=== PATIENT | female | born 1950 | race Two or more races ===

== ENCOUNTER 2020-06-21 13:48 | Emergency (ER) | payer MEDICARE, SELFPAY ==
[2020-06-21 16:10] VITALS: BP 155/75; PULSE 85; RESP 18; TEMP 36.7; O2SAT 98; BMI 23.8
[2020-06-21 19:20] LABS: MANUAL DIFF FLAG NO
[2020-06-21 19:21] LABS: Basophils Absolute Auto 0.1 X10*3/uL (0.0-0.2); Basophils Percent Auto 0.6 % (0-2); Eosinophils Absolute Auto 0.1 X10*3/uL (0.0-0.4); Eosinophils Percent Auto 1.4 % (0-4); Hemoglobin 14.1 g/dl (12.0-16.0); Imm Gran Abs Auto 0.01 X10*3/uL (0.00-0.03); Imm Gran Pct Auto 0.1 % (0.0-0.4); Lymphocytes Absolute Auto 3.7 X10*3/uL (1.2-4.9); Lymphocytes Percent Auto 40.7 % (20-40); Mean Corpuscular HGB Conc 32.8 g/dl (31.0-35.0); Mean Corpuscular Hemoglobin 28.7 pg (27.0-33.0); Mean Corpuscular Volume 87.4 fL (80-98); Monocytes Absolute Auto 0.7 X10*3/uL (0.1-1.2); Monocytes Percent Auto 7.8 % (2-11); Neutrophils Absolute Auto 4.5 X10*3/uL (2.0-8.3); Neutrophils Percent Auto 49.4 % (45-73); Platelet Count 269 X10*3/uL (160-400); Red Blood Count 4.92 X10*6/uL (4.20-5.50); Red Cell Distribution Width 13.3 % (11.0-16.0); White Blood Count 9.1 X10*3/uL (4.8-10.8)
[2020-06-21 19:27] LABS: Prothrombin Time 12.1 SEC (10.8-13.0)
[2020-06-21 19:43] LABS: Anion Gap 13 (12-20); Blood Urea Nitrogen 15 mg/dL (9-16); Calcium 10.2 mg/dL (8.4-10.2); Carbon Dioxide 32 mmol/L (22-29); Chloride 99 mmol/L (96-108); Creatinine Clr Calc Pharmacy 60.9; Estimated Glomerular Filt Rate > 60; Glucose Random 123 mg/dL (60-115); Potassium 4.2 mmol/L (3.3-5.1); Sodium 140 mmol/L (135-145)
[2020-06-21 19:50] LABS: Troponin-I High Sensitivity < 3.5 ng/L (<3.5-17.0)
[2020-06-21 21:38] VITALS: BP 187/82; PULSE 77; RESP 18; TEMP 36.6; O2SAT 97
[2020-06-21 22:00] LABS: Glucose, Whole Blood 136 mg/dL (60-115)
--- NOTE | 2020-06-22 00:05 | ED.GENADULT ---
HPI - General Adult General Chief complaint: Neuro Symptoms/Deficit Stated complaint: dizziness and palipations Time Seen by Provider: 06/21/20 23:47 Source: patient Mode of arrival: ambulatory Limitations: no limitations History of Present Illness HPI narrative: Patient has history of hypertension takes lisinopril 10 mg and hydrochlorothiazide 12.5 daily and a blood pressure been stable usually less than 130/70 last 3 days patient noticed a blood pressure elevated fluctuating systolic blood pressure between 160-180 and diastolic between 70-90. Patient been little anxious lately felt little dizzy no chest pain no shortness of breath patient denied using of any NSAID. On arrival patient's blood pressure was 155/75 increased to 187/88 pulse rate of 77 Related Data Allergies Allergy/AdvReac Type Severity Reaction Status Date / Time lovastatin AdvReac Rash Verified 06/21/20 16:10 Penicillin Allergy Unknown rash Uncoded 07/21/11 00:00 Review of Systems Review of Systems: Constitutional : No Weight loss, No Fever, No Chills ENT/Mouth : No sore throat, No Rhinorrhea Eyes: No Eye Pain, No Swelling Cardiovascular : No Chest Pain, no palpitations Respiratory : No Cough, No Sputum, no shortness of breath Gastrointestinal : no Nausea, No Vomiting, No Diarrhea, No abdominal Pain, no black stools Genitourinary : No Dysuria, No Urinary Frequency Musculoskeletal : No joint pain, No Myalgias, No Joint Swelling Skin : No Skin Lesions, No rash Neuro : No Weakness, No Numbness, + Dizziness, No Headache Psych : + anxiety, No Depression Heme/Lymph: No Bruising, No Lymphadenopathy Endocrine : No Polyuria, No Polydipsia All other systems reviewed and are negative [facility] Past Medical History Medical History Asthma Diabetes High cholesterol HTN (hypertension) Social History Social History Advance Directives: No Advance Directives Information Provided: No Physical Exam Vital Signs: Vital Signs: Last Vital Signs Temp 97.9 F 06/21/20 21:38 Pulse 77 06/21/20 21:38 Resp 18 06/21/20 21:38 BP 187/82 H 06/21/20 21:38 Pulse Ox 97 06/21/20 21:38 Body Mass Index 23.8 Appearance: Alert. Oriented X3. No acute distress. Anxious++ Eyes: Pupils equal, round and reactive to light. ENT: Pharynx normal. Neck: Normal inspection. Neck supple. CVS: Normal heart rate and rhythm. Pulses normal. Respiratory: No respiratory distress. Breath sounds normal. Abdomen: Soft and nontender. Bowel sounds are present, no mass palpable, no CVA tenderness Skin: Skin warm and dry. Normal skin color. Normal skin turgor. Extremities: No lower extremity edema. Neuro: Oriented X 3. No motor deficit. No sensory deficit. Medical Decision Making MDM Narrative Medical decision making narrative: Patient with fluctuation blood pressure repeat blood pressure was 154/67 patient asymptomatic now patient advised to follow with PCP Lab Data Lab results reviewed: Yes I reviewed the patient's lab results. Result diagrams: 06/21/20 19:06/21/20 19: Labs: Lab Results 06/21/20 06/21/20 06/21/20 Range/Units 19: 19:01 19:01 WBC 9.1 (4.8-10.8) X10*3/uL RBC 4.92 (4.20-5.50) X10*6/uL Hgb 14.1 (12.0-16.0) g/dl Hct 43.0 (37-47) % MCV 87.4 (80-98) fL MCH 28.7 (27.0-33.0) pg MCHC 32.8 (31.0-35.0) g/dl RDW 13.3 (11.0-16.0) % Plt Count 269 (160-400) X10*3/uL MPV 11.0 (9.4-12.3) fL Immature Gran % (Auto) 0.1 (0.0-0.4) % Neut % (Auto) 49.4 (45-73) % Lymph % (Auto) 40.7 H (20-40) % Traverse % (Auto) 7.8 (2-11) % Eos % (Auto) 1.4 (0-4) % Baso % (Auto) 0.6 (0-2) % Lymph # (Auto) 3.7 (1.2-4.9) X10*3/uL Traverse # (Auto) 0.7 (0.1-1.2) X10*3/uL Eos # (Auto) 0.1 (0.0-0.4) X10*3/uL Baso # (Auto) 0.1 (0.0-0.2) X10*3/uL Abs Immat Gran (auto) 0.01 (0.00-0.03) X10*3/uL Absolute Neuts (auto) 4.5 (2.0-8.3) X10*3/uL Absolute Nucleated RBC 0.000 (0.0-0.012) X10*3/uL Nucleated RBC % (auto) 0.0 (0.0-0.2) /100WBC PT 12.1 (10.8-13.0) SEC INR 1.0 (0.9-1.1) Sodium 140 (135-145) mmol/L Potassium 4.2 (3.3-5.1) mmol/L Chloride 99 (96-108) mmol/L Carbon Dioxide 32 H (22-29) mmol/L Anion Gap 13 (12-20) BUN 15 (9-16) mg/dL Creatinine 0.68 (0.5-1.4) mg/dL Estim Creat Clear Calc 60.9 Estimated GFR > 60 POC Glucose (60-115) mg/dL Random Glucose 123 H (60-115) mg/dL Calcium 10.2 (8.4-10.2) mg/dL Troponin I High Sens (<3.5-17.0) ng/L 06/21/20 06/21/20 Range/Units 19:01 21:54 WBC (4.8-10.8) X10*3/uL RBC (4.20-5.50) X10*6/uL Hgb (12.0-16.0) g/dl Hct (37-47) % MCV (80-98) fL MCH (27.0-33.0) pg MCHC (31.0-35.0) g/dl RDW (11.0-16.0) % Plt Count (160-400) X10*3/uL MPV (9.4-12.3) fL Immature Gran % (Auto) (0.0-0.4) % Neut % (Auto) (45-73) % Lymph % (Auto) (20-40) % Traverse % (Auto) (2-11) % Eos % (Auto) (0-4) % Baso % (Auto) (0-2) % Lymph # (Auto) (1.2-4.9) X10*3/uL Traverse # (Auto) (0.1-1.2) X10*3/uL Eos # (Auto) (0.0-0.4) X10*3/uL Baso # (Auto) (0.0-0.2) X10*3/uL Abs Immat Gran (auto) (0.00-0.03) X10*3/uL Absolute Neuts (auto) (2.0-8.3) X10*3/uL Absolute Nucleated RBC (0.0-0.012) X10*3/uL Nucleated RBC % (auto) (0.0-0.2) /100WBC PT (10.8-13.0) SEC INR (0.9-1.1) Sodium (135-145) mmol/L Potassium (3.3-5.1) mmol/L Chloride (96-108) mmol/L Carbon Dioxide (22-29) mmol/L Anion Gap (12-20) BUN (9-16) mg/dL Creatinine (0.5-1.4) mg/dL Estim Creat Clear Calc Estimated GFR POC Glucose 136 H (60-115) mg/dL Random Glucose (60-115) mg/dL Calcium (8.4-10.2) mg/dL Troponin I High Sens < 3.5 (<3.5-17.0) ng/L Discharge Plan Discharge Clinical Impression: Hypertension Qualifiers: Hypertension type: essential hypertension Qualified Code(s): I10 - Essential (primary) hypertension Patient Disposition: Home, Self-Care Instructions: Chronic Hypertension (ED) Additional Instructions: Take her blood pressure medication daily as prescribed. Check blood pressure before taking the medicine and before going to bed should be less than 160/100 His blood pressure continued to be elevated you may take extra tablet of your blood pressure medicine and call your PCP Stand Alone Forms: Work/School Release
[2020-06-22 00:53] VITALS: BP 135/71; PULSE 76; RESP 18; O2SAT 98
== END 2020-06-22 00:56 | disposition home or self-care (01) ==
PROVIDERS: Emergency Provider Internal Medicine; PCP Family Medicine Adult Medicine
DX: I10 Essential (primary) hypertension (principal); E11.9 Type 2 diabetes mellitus without complications; Z79.899 Other long term (current) drug therapy
CPT/HCPCS: 36415; 80048; 82947; 84484; 85025; 85610; 99283; 99284

== ENCOUNTER 2021-05-19 11:14 | Outpatient (REF) | payer MEDICARE, SELFPAY ==
--- NOTE | ~2021-05-19 | XR_ITS ---
EXAMINATION: XR CHEST CLINICAL INFORMATION: Acute upper respiratory infection. COMPARISON: None TECHNIQUE: 2 views of the chest were obtained. FINDINGS: No significant abnormality is noted involving the heart, lungs, mediastinum, bony thorax or soft tissues. XR/XR chest 2V IMPRESSION: Unremarkable chest exam
[2021-05-19 13:52] LABS: Binax Internal Control QC Valid; Binax Now Covid-19 Ag Positive (Negative)
== END 2021-05-19 11:15 | disposition home or self-care (01) ==
LOC: HO.HMGCX 11:14
PROVIDERS: PCP Internal Medicine; Visit Provider Physician Assistant
DX: Z20.822 Contact with and (suspected) exposure to COVID-19 (principal); J06.9 Acute upper respiratory infection, unspecified
CPT/HCPCS: 36415; 71046

== ENCOUNTER 2023-03-30 11:27 | Outpatient (AMB) | payer MEDICARE, SELFPAY ==
[2023-03-30 13:02] VITALS: BP 130/70; PULSE 87; TEMP 36.7; O2SAT 98
--- NOTE | 2023-03-30 13:02 | MHC.PC.OV ---
Vital Signs 03/30/23 13:02 Height 5 ft 2 in Intake Visit Reasons: EP RT Neck pain radiating up from RT Ribs Intake Note: pt is here for c/o rt neck pain radiating from ribs Allergies lovastatin Adverse Reaction (Verified 03/30/23 13:03) Rash Penicillin Allergy (Unknown, Uncoded 07/01/22 09:05) rash HPI HPI Comments History of Present Illness Details This is a who presents to the office today for sick visit. Patient complaining of . PFSH Medical History Asthma Diabetes High cholesterol HTN (hypertension) Social History Patient Tobacco Use Status: Never used Tobacco Review of Systems Const All systems reviewed & are unremarkable except as noted in HPI and below Reports no additional complaints Eyes Reports no additional complaints ENT Reports no additional complaints Card Reports no additional complaints Resp Reports no additional complaints GI Reports no additional complaints Reports no additional complaints Musc Reports no additional complaints Skin/Breast Reports system reviewed and no additional complaints, except as documented Neuro Reports no additional complaints Psych Reports no additional complaints Endo Reports no additional complaints Og/Lymph Reports no additional complaints Aller/Immun Reports no additional complaints Physical exam (Primary Care) Tobacco/Smoking Status: Tobacco use Status Patient Tobacco Use Status Never used Tobacco 03/30/23 13:04 Coding
--- NOTE | 2023-03-30 13:23 | MHC.OFFWIV ---
Intake Vital Signs 03/30/23 13:02 Height 5 ft 2 in BP 130/70 Blood Pressure Location Lt brachial Position Sitting Pulse 87 Pulse Source Pulse Oximeter Temp 98.0 F Temp Source Temporal Artery Scan Pulse Oximetry (%) 98 Intake Visit Reasons: EP RT Neck pain radiating up from RT Ribs Intake Note: pt is here for c/o rt neck pain radiating to ribs Patient Tobacco Use Status: Never used Tobacco Allergies lovastatin Adverse Reaction (Verified 03/30/23 13:03) Rash Penicillin Allergy (Unknown, Uncoded 07/01/22 09:05) rash HPI HPI Comments History of Present Illness Details This is a 73-year-old female who presents to the office today for sick visit. Patient complaining of right sided rib/chest wall pain x3 days and right-sided neck pain x1 day. Patient states she leaned over the side of her recliner on the right side of her chest wall to pick something off the ground. She felt a mild pull in the right side of her chest. She states that she has been pain with coughing, sneezing, and laughing. She then woke up with mild right-sided neck pain yesterday morning. She denies any shortness of breath or substernal chest pain. She denies any abdominal pain or nausea/vomiting/diarrhea. She denies any lightheadedness or dizziness. [facility] Medical History Asthma Diabetes High cholesterol HTN (hypertension) Social History Patient Tobacco Use Status: Never used Tobacco Review of Systems Const All systems reviewed & are unremarkable except as noted in HPI and below Reports no additional complaints Eyes Reports no additional complaints ENT Reports no additional complaints Card Reports no additional complaints Resp Reports no additional complaints GI Reports no additional complaints Reports no additional complaints Musc Reports no additional complaints Skin/Breast Reports system reviewed and no additional complaints, except as documented Neuro Reports no additional complaints Psych Reports no additional complaints Endo Reports no additional complaints Og/Lymph Reports no additional complaints Aller/Immun Reports no additional complaints Physical Exam Vital Signs: Last Vital Signs Temp 98.0 F 03/30/23 13:02 Pulse 87 03/30/23 13:02 BP 130/70 03/30/23 13:02 Pulse Ox 98 03/30/23 13:02 Const Other: Vital signs reviewed. Constitutional: Non-toxic appearing. No acute distress. Well-developed and well-nourished. HEENT: Normocephalic and atraumatic. Tympanic membranes without erythema, edema, or bulging bilaterally. External auditory canals without erythema or edema bilaterally. Moist mucous membranes. No pharyngeal erythema or exudates. Skin: Warm and dry. No rashes or lesions noted. Neck: Full and painless range of motion. No cervical lymphadenopathy. Mild tenderness to palpation with muscle spasms of the right-sided cervical paraspinal musculature. Cardio: Regular rate and rhythm. No murmurs, gallops, or rubs. No lower extremity edema. No JVD. Mild tenderness to palpation of the right chest wall. Pulmonary: No respiratory distress. No accessory muscle usage. Clear to auscultation bilaterally without wheezing, crackles, or rhonchi. Gastrointestinal: Soft, nontender, and nondistended in all 4 quadrants. Normoactive bowel sounds in all 4 quadrants. Genitourinary: No CVA tenderness. Musculoskeletal: Normal range of motion in joints throughout the body. No deformity or other signs of injury. Neuro: Alert and oriented x4. Cranial nerves 2-12 grossly intact. No focal deficits appreciated. Psych: Normal mood and affect. Assessment & Plan Assessment & Plan (1) Cervicalgia: Code(s): M54.2 - Cervicalgia Plan: This is a 73-year-old female who presents to the office complaining of right-sided chest wall pain known right-sided neck pain x3 days. Patient has right-sided chest wall pain began after leaning over her recliner to pick something off the ground and she felt a ?pull?, her neck pain started 2 days later. Patient very likely has a intercostal sprain/strain; I believe that her right-sided neck pain is likely secondary to compensation as patient has been bracing with coughing, sneezing, laughing, etc.. Recommended supportive management including rest/activity modification, heat to the area, lidocaine patches to the area, PO acetaminophen/ibuprofen for pain, and PO methocarbamol 750 mg 3 times daily as needed for muscle spasms. Offer the patient a chest x-ray to rule out rib fracture, but patient declined at this time and I have very low suspicion for rib fracture given no significant trauma. Patient advised to follow-up here or with the emergency room for persistent or worsening symptoms. Patient verbalizes her understanding and she is in agreement with the plan. Medications: New methocarbamol 750 mg PO Q8H PRN 20 tabs 0RF muscle spasm Coding Level of Care Code Est Pt Level 3 (87976) Diagnoses Cervicalgia M54.2
== END 2023-03-30 13:46 | disposition home or self-care (01) ==
PROVIDERS: PCP Internal Medicine; Visit Provider Physician Assistant Medical
DX: M54.2 Cervicalgia (principal)
CPT/HCPCS: 99213

== ENCOUNTER 2024-01-16 10:51 | Outpatient (AMB) | payer OTHER, SELFPAY ==
[2024-01-16 11:18] VITALS: BP 102/60; PULSE 97; TEMP 36.8; O2SAT 99; BMI 23.6
--- NOTE | 2024-01-16 11:18 | MHC.OFFWIV ---
Intake Vital Signs 01/16/24 11:18 Height 5 ft 2 in Weight 129 lb BMI 23.6 BP 102/60 Blood Pressure Location Lt brachial Position Sitting Pulse 97 Pulse Source Pulse Oximeter Temp 98.3 F Temp Source Oral Pulse Oximetry (%) 99 Oxygen Delivery Method Room Air Intake Visit Reasons: EP Cough, mucus, Wheezing Intake Note: pt c/o cough, mucus and wheezing. Started Sunday with dry cough. Worsening. Patient Tobacco Use Status: Never used Tobacco Allergies lovastatin Adverse Reaction (Verified 01/16/24 11:19) Rash Penicillin Allergy (Unknown, Uncoded 01/16/24 11:19) rash Do you need a note to return to daycare/school/sports/work: No HPI EP Cough, mucus, Wheezing HPI Details This note is constructed using voice recognition software. While every effort has been made to ensure accuracy, school cafeteria head cook errors may have been included. The patient is a 73 year old female who presents to the clinic today with cough with wheeze onset Sunday. 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 She had seen her pipe and test supervisor as recent as 2 weeks ago and there was discussion about how it has been over 6 months since she has had an asthma exacerbation. She developed a cough with no additional symptoms. She reports that typically when she has her asthma exacerbation she has some sort of URI symptoms including congestion or sore throat or something URI related prior to developing a cough that seems to not go away. This time she has developed a cough that makes her lungs feel tight, she does not have any chest pain, she does not have any shortness of breath. She has been using her inhalers, but the symptoms do not seem to resolve. [facility] Medical History Asthma Diabetes High cholesterol HTN (hypertension) Social History Patient Tobacco Use Status: Never used Tobacco Review of Systems Const All systems reviewed & are unremarkable except as noted in HPI and below Physical Exam Vital Signs: Last Vital Signs Temp 98.3 F 01/16/24 11:18 Pulse 97 01/16/24 11:18 BP 102/60 01/16/24 11:18 Pulse Ox 99 09/04/24 11:18 Oxygen Delivery Method Room Air 01/16/24 11:18 BMI result Body Mass Index 23.6 Const General: cooperative, healthy appearing, comfortable, no acute distress and alert Orientation/consciousness: patient oriented x3 Limitations: no limitations HEENT Head: Yes normal to inspection and Yes normocephalic Ears: hearing grossly normal bilaterally General nose exam: Normal external nose present Face and sinus: Yes normal facial exam and Yes sinuses nontender Mouth: Normal oral and palatal mucosa present and tongue normal Teeth and gingiva: dentition normal Throat: Yes posterior oropharynx normal Eyes General: appearance normal, both eyes and all related structures Neck Neck: Yes normal visual inspection, Yes full ROM and Yes no lymphadenopathy Resp Effort & Inspection: normal respiratory effort and able to speak in complete sentences Auscultation: clear to auscultation bilaterally (But tight sounding) Cardio Jugular venous distension: no JVD Palpation: normal PMI Rate: regular rate Heart sounds: S1 normal heart sound present, S2 normal heart sound present, no click, no gallops, no murmurs and no rubs Skin General skin exam: no rashes or lesions noted, elasticity normal and turgor normal Neuro General: patient oriented x3 Psych Appearance: grossly normal Mental Status: mental status grossly normal Speech and movement: Normal speech and movement present Affect: normal affect Assessment & Plan Assessment & Plan (1) URI (upper respiratory infection): Code(s): J06.9 - Acute upper respiratory infection, unspecified Qualifiers: URI type: unspecified URI Qualified Code(s): J06.9 - Acute upper respiratory infection, unspecified Plan: Viral swab obtained to rule out Covid based on symptoms. Advised mask wearing while symptomatic and quarantine per current CDC guidelines. Reviewed at home support methods including hydration, humidification, vix vapor rub, sinus rinse. Discussed treatment with antiviral therapy for covid with paxlovid including appropriate use and side effects, and need to start medication within 5 day of symptom onset, preferably within 48 hours of symptom onset. Patient wishes to decline paxlovid. Advised follow up with worsening symptoms such as dyspnea at rest, which would require emergent evaluation. (2) Asthma exacerbation: Code(s): J45.901 - Unspecified asthma with (acute) exacerbation Qualifiers: Asthma severity: mild Asthma persistence: persistent Qualified Code(s): J45.31 - Mild persistent asthma with (acute) exacerbation Plan: Otherwise reassuring physical examination. We will treat with steroid burst for symptomatic management. Advised patient to continue with her daily controller inhalers and her as needed albuterol. Advised to follow up with pipe and test supervisor should her symptoms persist or worsen. Plan See above for full details and plan. Medications: New prednisone 40 mg (2 x 20 mg) PO DAILY 5 days 10 tabs 0RF Coding Level of Care Code Est Pt Level 3 (95283) Diagnoses Upper respiratory tract infection, unspecified type J06.9 URI type: unspecified URI Mild persistent asthma with exacerbation J45.31 Asthma severity: mild Asthma persistence: persistent
== END 2024-01-16 11:48 | disposition home or self-care (01) ==
PROVIDERS: PCP Internal Medicine; Visit Provider Registered Nurse
DX: J06.9 Acute upper respiratory infection, unspecified (principal); J45.31 Mild persistent asthma with (acute) exacerbation
CPT/HCPCS: 99213

== ENCOUNTER 2024-01-16 11:51 | Outpatient (REF) | payer OTHER, SELFPAY ==
[2024-01-16 14:09] LABS: Influenza A PCR NEGATIVE (Negative); Influenza B PCR NEGATIVE (Negative); Resp Syncy Virus RNA Qual PCR NEGATIVE (Negative); SARS COV2 PCR INHOUSE NEGATIVE (Negative)
== END 2024-01-16 11:52 | disposition home or self-care (01) ==
LOC: HO.LAB 11:51
PROVIDERS: Visit Provider Registered Nurse
DX: J06.9 Acute upper respiratory infection, unspecified (principal)
CPT/HCPCS: 0241U

== ENCOUNTER 2024-06-23 14:20 | Outpatient (AMB) | payer OTHER, SELFPAY ==
--- NOTE | 2024-06-23 14:42 | MHC.OFFWIV ---
Intake Vital Signs 06/23/24 14:44 Weight 127 lb BP 140/80 H Blood Pressure Location Rt brachial Position Sitting Pulse 120 H Pulse Source Pulse Oximeter Temp 98.2 F Temp Source Oral Pulse Oximetry (%) 97 Oxygen Delivery Method Room Air Intake Visit Reasons: EP persistent cough, wheezing Intake Note: Patient here for cough and wheezing that has been present for over 2 weeks. Patient Tobacco Use Status: Never used Tobacco Allergies lovastatin Adverse Reaction (Verified 06/23/24 14:45) Rash benzonatate Allergy (Intermediate, Uncoded 06/23/24 15:12) Unknown Penicillin Allergy (Unknown, Uncoded 06/23/24 14:45) rash Do you need a note to return to daycare/school/sports/work: No HPI HPI Comments History of Present Illness Details History - The patient is a 74-year-old female with pmhx of asthma presenting with an acute cough and difficulty breathing. - Symptoms initiated three days prior, with an intensification of asthma-related issues. - Asthma history includes recent prednisone treatment in early May; symptoms worsened unexpectedly. - Breathing difficulties exacerbate with steam exposure, leading to panic and breathlessness. - Current regimen includes inhaler every 4-5hrs and nebulizer use every 5 hours, though efficacy is presently diminished. - Throat soreness and chest burning accompany the acute cough, with ongoing inhaler and fluid therapy. - Sensitivity to Benzonatate and avoidance of penicillin-based antibiotics are noted. Physical Exam General: Cooperative, healthy appearing, comfortable and no acute distress Orientation/consciousness: Patient oriented x3 Limitations: No limitations Head: Normal to inspection Ears: Hearing grossly normal bilaterally, external ears normal and TM's normal bilaterally Nose: Normal external nose present, Normal nares present and No nasal discharge present Face and sinus: Normal facial exam and Yes sinuses nontender Mouth: Normal oral and palatal mucosa present and moist mucous membranes Throat: Yes tonsils normal, Yes uvula midline. Throat sore and inflamed Eyes: Appearance normal, both eyes and all related structures Neck: Normal visual inspection Respiratory: Clear to auscultation bilaterally. Normal respiratory effort, able to speak in complete sentences, Actively dry coughing, no respiratory distress, not tachypneic, no tripod positioning and no use of accessory muscles. Wheezing present Cardiovascular: tachycardid rate and regular rhythm. Normal S1 and S2 Skin: No rashes or lesions noted Neuro: Patient oriented x3 Extremities: Normal to inspection and Yes no clubbing, cyanosis or edema PFSH Medical History Asthma Diabetes High cholesterol HTN (hypertension) Social History Patient Tobacco Use Status: Never used Tobacco Review of Systems Const All systems reviewed & are unremarkable except as noted in HPI and below Physical Exam Vital Signs: Last Vital Signs Temp 98.2 F 06/23/24 14:44 Pulse 120 H 06/23/24 14:44 BP 140/80 H 06/23/24 14:44 Pulse Ox 97 06/23/24 14:44 Oxygen Delivery Method Room Air 06/23/24 14:44 Assessment & Plan Assessment & Plan (1) URI (upper respiratory infection): Code(s): J06.9 - Acute upper respiratory infection, unspecified Qualifiers: URI type: unspecified URI Qualified Code(s): J06.9 - Acute upper respiratory infection, unspecified Plan: Pt tachycardic, likely 2/2 dehydration, encouraged increased fluids and rest. For management of the asthma exacerbation and acute cough, I have prescribed azithromycin for its potential anti-inflammatory effects alongside a prednisone burst of 50 mg for five days to address airway inflammation. The patient should use her inhaler and nebulizer every four hours as required, while being advised on avoiding the concurrent intake of hydroxyzine with azithromycin due to interaction risks. Diagnostic testing for influenza, COVID-19, and RSV will be conducted to evaluate possible viral etiologies contributing to the respiratory distress. Medication side effects were discussed, and we will follow up on test results and therapeutic response. Patient was informed and verbally consented to the use of an ambient scribe for clinic note documentation during this visit Orders: Orders SARS-CoV2/FLU/RSV Today J06.9 - Acute upper respiratory infection, unspecified Medications: New prednisone 50 mg PO QAM 5 tabs 0RF azithromycin For 250 mg dose pack: take 500 mg today (day 1), then 250 mg for 4 days (days 2-5) PO 6 tabs 0RF Coding Level of Care Code New Pt Level 3 (39905) Diagnoses Upper respiratory tract infection, unspecified type J06.9 URI type: unspecified URI
[2024-06-23 14:44] VITALS: BP 140/80; PULSE 120; TEMP 36.8; O2SAT 97
== END 2024-06-23 15:09 | disposition home or self-care (01) ==
PROVIDERS: PCP Internal Medicine; Visit Provider Physician Assistant
DX: J06.9 Acute upper respiratory infection, unspecified (principal)

== ENCOUNTER 2024-06-23 14:20 | Outpatient (REF) | payer OTHER, SELFPAY ==
--- OUTSIDE RECORDS SUMMARY | 2024-06-23 16:14 | XMS_ITS | Encounter Summary ---
Author Organization [facility] Address [address] [place] [address] Care Team Providers Care Gun Tester Name Role Phone Guerita Perez MD Primary Care Prov ider Reason for Visit * Reason Onset Date Comments Wheezing 06/06/2024 Encounter Details Date Type Department Care Team ([facility] st Contact Info) Description 06/06/2024 Telephone Pulmonol - [place] [address] [place] [phone] Nettie Garcia NP [address] [place] [address] Wheezing Social History Tobacco Use Types Packs/Day Years Used Date Smoking Tobacco: Never Passive Smoke Exposure: Never Smokeless Tobacco: Never Alcohol Use Standard Drinks/Week Comments Never 0 (1 standard drink = 0.6 oz pur e alcohol) Interpersonal Safety Answer Date Record ed Physical Abuse 03/26/2024 Verbal Abuse 03/26/2024 Comments No Sex and Gender Information Value Date Recorded Sex Assigned at Female 03/26/2024 11:22 AM EST Legal Sex Female 6:52 PM EST Gender Identity Female 03/26/2024 11:22 AM EST Sexual Orientation Straight 03/26/2024 11 :22 AM EST documented as of this encounter Progress Notes * Manasa Martin MA - 06/06/2024 11:42 AM EST Appointment schedule for Sunday June 09, 2024 at 8:30 am. patient was advised if the symptoms get worsen during the weekend to go to any urgent care * Salima Arora - 06/06/2024 9:37 AM EST Patient called requesting an apt [place] due to patient has been wheezing for the past 2 days and it seem to get worst at night. Patient is seeking foa apt , please advice documented in this encounter Plan of Treatment Upcoming Encounters Date Type Department Care Team (Late st Contact Info) Description 06/24/2024 9:30 AM EST Office Visit [facility] [address] [phone] Nettie Garcia NP [address] [phone] 07/04/2024 10:10 AM EST [facility] [address] [phone] Nettie Garcia NP [address] [address] 07/16/2024 8:30 AM EST Office Visit [facility] - [address] [phone] Guerita Perez MD [address] [place] [id number] 03/20/2025 1:30 PM EST Appointment Radiology Department - [address] [phone] documented as of this encounter Visit Diagnoses Not on filedocumented in this encounter Additional Health Concerns Assessment Noted Time PHQ-9 Depression Total Score: 0 03/18/20 8:43 AM EST documented as of this encounter Care Teams Gun Tester Relationship Specialty Start Date End Date Guerita Perez MD [address] [place] [id number] PCP - General Internal Medicine 03/19/24 documented as of this encounter
--- OUTSIDE RECORDS SUMMARY | 2024-06-23 16:14 | XMS_ITS | Encounter Summary ---
Author Organization [facility] Address [address] [place] [address] Care Team Providers Care Commodity Buyer Name Role Phone Guerita Perez MD Primary Care Prov ider Reason for Visit * Reason Comments Post-op Encounter Details Date Type Department Care Team (Late st Contact Info) Description 06/03/2024 2:20 PM EST Office Visit Obstetrics and Gynecology [address] [phone] Flavia Ruffin PA [address] [place] [address] Postop check (Primary Dx); Status post hysterectomy Social History Tobacco Use Types Packs/Day Years Used Date Smoking Tobacco: Never Passive Smoke Exposure: Never Smokeless Tobacco: Never Tobacco Cessation:Counseling Given: Not Answered Alcohol Use Standard Drinks/Week Comments Never 0 [...] AM EST documented as of this encounter Last Filed Vital Signs Vital Sign Reading Time Taken Comments Blood Pressure 148/82 06/03/2024 2:32 PM EST Pulse 92 06/03/2024 2:32 PM EST Temperature - - Respiratory Rate 14 06/03/2024 2:32 PM EST Oxygen Saturation - - Inhaled Oxygen Concentration - - Weight 59.2 kg (130 lb 9.6 oz) 06/03/2024 2:32 PM EST Height - - Body Mass Index 23.89 03/26/2024 11:38 AM EST documented in this encounter Progress Notes * KALIN Schroeder - 06/03/2024 2:20 PM EST PATIENT: Bing Sexton ENCOUNTER: 06/03/2024 EMRN: [id number] : 1950 Chief Complaint: No chief complaint on file. History of Present Illness: Bing Sexton is a 74 y.o. old female presenting for 2nd post operative appointment following RTLH with BSO on 03/26/[address] Stoner Following surgery she has been feeling great and has no complaints. Voiding - without issue Bowel Movements - regular Pain - controlled Bleeding / Discharge - denies Review of Systems: As per HPI Medications: Reviewed Allergies: Oxycodone, Lovastatin, Penicillin g, and Pravastatin Past Medical History: Reviewed Past Surgical History: Past Surgical History: Procedure Laterality Date COLONOSCOPY KNEE ARTHROPLASTY ROBOTIC ASSISTED HYSTERECTOMY 03/2024 with BSO; path benign TOTAL KNEE ARTHROPLASTY Bilateral Physical Exam: Visit Vitals LMP (LMP Unknown) OB Status Postmenopausal Smoking Status Never GENERAL: Well-appearing, well-nourished patient in no acute distress SKIN: Warm, normal for ethnicity and dry. HEENT: Normocephalic. No scleral icterus. Visual pacheco grossly intact. Hearing intact CARDIO: RRR, No M/R/G appreciated PULM: Non labored breathing. No audible wheezing. ABDOMINAL: Soft, non-distended, non-tender. No mass, guarding, or rebound. Incision sites are well healed without erythema or discharge. MSK: ROM grossly intact. Normal Tone. No calf tenderness NEURO: Alert & oriented x3. PSYCH: Normal affect, fluid speech, good eye contact, appropriate demeanor. Pelvic: Exam chaperoned by medical administrative specialist. Speculum was used for exam External Genitalia: Normal architecture, without lesions. Vagina: Mucosa is pink with normal rugae. No abnormal discharge Cervix/Uterus: Absent. Cuff intact. Probed with q-tip. Adnexa: No adnexal masses or tenderness bilaterally Perianal area: without lesions Assessment / Plan: Bing Sexton present for 2nd post op appointment. Incisions are well healed and pain is controlled. Cuff appears intact on exam. Vaginal restrictions lifted. Patient is cleared for return to work. No further lifting / pushing / pulling restrictions. This visit harrell the end of this patient's surgical visits. Return to office for annual exam or if needed for acute issues. documented in this encounter Plan of Treatment Upcoming Encounters Date Type Department Care Team (Late st Contact Info) Description 06/24/2024 9:30 AM EST Office Visit [facility] [address] [phone] Nettie Garcia NP [address] [address] 07/04/2024 10:10 AM EST Office Visit [facility] [address] [phone] Nettie Garcia NP [address] [address] 07/16/2024 8:30 AM EST Office Visit [facility] - [address] [phone] Guerita Perez MD [address] [place] [phone] 03/20/2025 1:30 PM EST Appointment Radiology Department - [address] [phone] documented as of this encounter Visit Diagnoses Diagnosis Postop check- Primary Follow-up examination, following unspecified surgery Status post hysterectomy Acquired absence of both cervix and uterus Encounter for screening mammogram for breast cancer documented in this encounter Additional Health Concerns Assessment Noted Time PHQ-9 Depression Total Score: 0 03/18/20 24 8:43 AM EST documented as of this encounter Care Teams Commodity Buyer Relationship Specialty Start Date End Date Guerita Perez MD [address] [place] [phone] PCP - General Internal Medicine 03/19/24 documented as of this encounter
--- OUTSIDE RECORDS SUMMARY | 2024-06-23 16:14 | XMS_ITS | Clinical Summary ---
Author Organization [facility] Address [address] [place] [address] Phone Care Team Providers Care Assistant Fitness Manager Name Role Phone Guerita Perez MD Primary Care Prov ider Allergies Active Allergy Reactions Criticality Noted Date Comments Benzonatate Hives,Rash 06/09/2024 Lovastatin Rash 04/18/2023 Oxycodone High 04/27/2023 Other Reaction(s): LIPS SWELLED Penicillin G Hives 11/12/2012 Other Reaction(s): Hives/Urticaria Pravastatin Headache 04/27/2023 Medications albuterol HFA (PROAIR HFA ; PROVENTIL HFA ; VENTOLIN HFA) 90 mcg/actuation inhaler Inhale 2 puffs by mouth 4 (four) times a day. 024 Active blood glucose control high,low solution Use to calibrate each new bottle of test strips 021 Active blood-glucose meter misc Use to test blood sugar once daily. 022 Active cetirizine (ZyrTEC) 10 mg tablet 1 tablet (10 mg total). 023 Active cholecalciferol (VITAMIN D-3) 25 mcg (1,000 unit) capsule Take 1 capsule (1,000 Units total) by mouth 1 (one) time each day. Active FREESTYLE LANCETS MISC Test fasting blood sugar 1 time daily 023 Active alendronate (FOSAMAX) 70 mg tablet Take 1 tablet (70 mg total) by mouth every 7 (seven) days. Active blood sugar diagnostic (FreeStyle Lite Strips) test strip USE DIRECTED TO TEST BLOOD SUGAR EVERY DAY Active betamethasone dipropionate (DIPROSONE) 0.05 % cream APPLY TO THE AFFECTED AREA(S) ON RIGHT THIGH TWICE DAILY FOR 2 WEEKS, STOP FOR 1 WEEK. REPEAT NEEDED FOR FLARE. Active empagliflozin (Jardiance) 10 mg tablet Take 1 tablet (10 mg total) by mouth 1 (one) time each day. Pt tp stop 1 week pror to sx 90 tablet Active metFORMIN XR (GLUCOPHAGE-XR) 500 mg 24 hr tablet Take 1 tablet (500 mg total) by mouth 2 (two) times a day. Do not crush, chew, or split. 180 tablet Active hydroCHLOROthia zide (MICROZIDE) 12.5 mg capsule Take 1 capsule (12.5 mg total) by mouth 1 (one) time each day in the morning. 45 capsule Active ezetimibe (ZETIA) 10 mg tablet Take 1 tablet (10 mg total) by mouth 1 (one) time each day. 90 tablet 025 Active lisinopriL (PRINIVIL,ZESTR IL) 10 mg tablet Take 1 tablet (10 mg total) by mouth 1 (one) time each day. 90 tablet 025 Active albuterol 2.5 mg /3 mL (0.083 %) nebulizer solutionIndicat ions:Moderate persistent asthma without complication Take 3 mL (2.5 mg total) by nebulization every 4 (four) hours if needed for shortness of breath or wheezing. 300 mL Active zafirlukast (Accolate) 20 mg tabletIndicatio ns:Moderate persistent asthma without complication Take 1 tablet (20 mg total) by mouth 2 (two) times a day. 60 each 025 2025 Active Advair HFA 230-21 mcg/actuation inhalerIndicati ons:Moderate persistent asthma without complication Inhale 2 puffs by mouth 2 (two) times a day. Rinse mouth with water after use to reduce aftertaste and incidence of candidiasis. Do not swallow. 1 each 5 025 2024 Active albuterol 2.5 mg /3 mL (0.083 %) nebulizer solution 3 mL (2.5 mg total) every 4 (four) hours if needed. 2024 Discontinued(R eorder) fluticasone HFA (Flovent HFA) 110 mcg/actuation inhaler Inhale 2 puffs by mouth 2 (two) times a day. 2024 Discontinued(F ormulary change) Advair HFA 230-21 mcg/actuation inhaler INHALE 2 PUFFS BY MOUTH TWICE DAILY RINSE MOUTH AFTER USING. AND SPIT OUT 2024 Discontinued(R eorder) ciclopirox (PENLAC) 8 % solution Apply topically at bedtime. Apply over nail and surrounding skin. Apply daily over previous coat. After seven (7) days, may remove with alcohol and continue cycle. 6.6 mL 2024 Discontinued traMADoL (ULTRAM) 50 mg tabletIndicatio ns:for acute post op pain Take 1 tablet (50 mg total) by mouth every 6 (six) hours if needed for severe pain. Max Daily Amount: 200 mg 8 tablet 2024 Discontinued simethicone (MYLICON) 80 mg chewable tablet Chew 1 tablet (80 mg total) every 6 (six) hours if needed (gas pain / bloating). 10 tablet 2024 Discontinued ondansetron (ZOFRAN) 4 mg tabletIndicatio ns:prevention of post-operative nausea and vomiting Take 1 tablet (4 mg total) by mouth every 8 (eight) hours if needed for nausea or vomiting. 10 tablet 2024 Discontinued predniSONE (DELTASONE) 20 mg tabletIndicatio ns:Moderate persistent asthma without complication Take 2 tablets (40 mg total) by mouth 1 (one) time each day for 5 days. 10 each 025 2024 Discontinued predniSONE (DELTASONE) 20 mg tabletIndicatio ns:Moderate persistent asthma without complication Take 2 tablets (40 mg total) by mouth 1 (one) time each day for 5 days. 10 each 025 2024 Active Problems Problem Noted Date Diagnosed Date Statin intolerance 07/04/2023 Osteoporosis 06/26/2023 Overview (07/04/2023): DXA BONE DENSITY STUDY 1+ SITS AXIAL SKEL Result Date: 06/25/2023 BONE DENSITY Lumbar Spine T-score is -2.9 (SD relative to 20-29 y/o adult) Z- score is -0.6 (SD relative to age matched peers) This is consistent with osteoporosis by criteria defined by the WHO. Left Hip T-score is -2.0 Z-score is -0.2 This is consistent with osteopenia by criteria defined by the WHO. Comparison exam(s): significant decrease in bone density of lumbar spine when compared to most recent bone density examination Confidence level is +/-95%. Impression: Based on the World Health Organization criteria, Bing Sexton should be classified as having osteoporosis. The [facility] Department of Internal Medicine recommends using National Osteoporosis Foundation (NOF) guidelines in treatment decisions related to osteoporosis. NOF guidelines suggest considering treatment for postmenopausal women and men aged 50 or older presenting with the following: History of hip or vertebral fracture. T-score less than or equal to -2.5 (DXA) at the femoral neck, total hip, or spine, after appropriate evaluation to exclude secondary causes. Low bone mass (T-score between -1.0 and -2.5 at the femoral neck or spine) AND a 10-year probability of a hip fracture greater than or equal to 3% OR a 10-year probability of a major osteoporosis-related fracture greater than or equal to 20% based on the [place]-adapted WHO algorithm Please note that all treatment decisions require clinical judgment and consideration of individual patient factors, including patient preferences, co-morbidities, previous drug use, risk factors not captured in the FRAX model (e.g., frailty, falls, vitamin D deficiency, increased bone turnover, interval significant decline in bone density) and possible under- or over- estimation of fracture risk by FRAX. Postmenopausal bleeding 02/07/2023 Pelvic pain 02/07/2023 Vaginal spotting 01/30/2023 Overview (07/04/2023): Last Assessment & Plan: Reassured likely secondary to recent EMB. Continue to monitor and call if does not resolve in the next 1-2 weeks. Irritant dermatitis 01/30/2023 Overview (07/04/2023): Last Assessment & Plan: Likely irritant dermatitis. Short course of topical Mycolog and yeast culture sent. Will follow [facility] guidelines. Uterine leiomyoma 07/11/2022 Overview (07/04/2023): Last Assessment & Plan: MRI results reviewed with patient. Discussed as patient is asymptomatic, no need for intervention. Fibroids may continue to degenerate over time. All questions answered. Endometrial polyp 12/28/2021 Overview (07/04/2023): Last Assessment & Plan: I again discussed the finding of endometrial polyp and recommendation for polypectomy due to small risk of underlying malignancy. Patient again declines. Left ovarian cyst 12/28/2021 Overview (07/04/2023): Last Assessment & Plan: Ultrasound results reviewed. Discussed with patient that left ovarian cyst appears simple and stable in size, however given her development of pain, surgical intervention is reasonable. We discussed the possible risk of underlying malignancy and I recommended completing a CA125 today. Treatment options including expectant management, laparoscopic salpingooophorectomy (unilater or bilateral) and TLH/BSO were discussed. Patient is most interested in hysterectomy with bilateral salpingo-oophorectomy given history of fibroid uterus and finding of endometrial polyp as well. We discussed that prior to hysterectomy I would like to perform endometrial sampling to ensure the endometrial polyp is benign. She expressed understanding and will return for endometrial biopsy. We discussed the plan for robotic approach with risk of conversion to open hysterectomy. Risks of surgery were discussed including the risk of underlying malignancy with need for future surgery and the risk of poor healing given history of diabetes with most recent A1c 7.5. Patient will complete CA125 today and return for endometrial biopsy. If results are benign, we will then schedule for robotic assisted total laparoscopic hysterectomy with bilateral salpingo-oophorectomy, possible open, peritoneal washings and diagnostic cystoscopy. All questions answered. Bulky or enlarged uterus 09/17/2021 Overview (07/04/2023): Last Assessment & Plan: I discussed the exam findings of an enlarged, bulky uterus with irregular contour with the patient today. She does report a history of fibroids, however no imaging is available for review. Ultrasound has been ordered for further evaluation. S/P TKR (total knee replacement), bilateral 02/12 Overview (07/04/2023): Left: 11/16/2021, right: 05/29/2019 Hyperlipidemia with target LDL less than 100 02/2014 Overview (07/04/2023): IMO update Assessment & Plan (03/20/2024 7:47 PM EST): Given the patients cardiac risk profile, the patient requires an LDL cholesterol of less than 70, target. Continue Zetia. I have instructed the patient on the principles of a low cholesterol diet and the importance of regular exercise. Will recheck lipid profile. Orders: Microalbumin creatinine urine ratio; Future Comprehensive metabolic panel; Future Hemoglobin A1c; Future Lipid panel with reflex to direct LDL; Future Diverticulitis of colon without hemorrhage 03/27 Overview (07/04/2023): CN 2006. HTN (hypertension), benign 11/12/2012 Assessment & Plan (03/20/2024 7:47 PM EST): The patient's antihypertensive regimen is based on their underlying medical issues. At the time of this visit, the blood pressure is well controlled on lisinopril, hydrochlorothiazide. The patient is instructed to follow a low sodium diet and to follow up in 4 months. Orders: Microalbumin creatinine urine ratio; Future Comprehensive metabolic panel; Future Hemoglobin A1c; Future Lipid panel with reflex to direct LDL; Future Diabetes mellitus type 2, controlled 11/12/2012 Assessment & Plan (03/20/2024 7:47 PM EST): Good control of diabetes. Patient will continue with yearly Podiatric and Ophthomologic evaluations.Will continue Angiotensin Converting Enzyme Inhibitor for renal protection. Continue metformin, and Jardiance. We will check a hemoglobin A1c. Patient will follow up in 4 months Orders: Microalbumin creatinine urine ratio; Future Comprehensive metabolic panel; Future Hemoglobin A1c; Future Lipid panel with reflex to direct LDL; Future Asthma 11/12/2012 Encounters Date Type Department Care Team Description 06/09/2024 8:30 AM EST [facility] [address] [phone] Nettie Garcia NP Moderate persistent asthma without complication (Primary Dx); Acute cough; Seasonal allergic rhinitis, unspecified trigger [facility] [address] [phone] Nettie Garcia NP Wheezing 06/03/2024 2:20 PM EST Office Visit Obstetrics and Gynecology - [address] [phone] Flavia Ruffin PA Postop check (Primary Dx); Status post hysterectomy 04/15/2024 9:20 AM EST Office Visit Obstetrics and Gynecology - [address] [phone] Flavia Ruffin PA Status post hysterectomy (Primary Dx); Postop check 03/26/2024 1:37 PM EST Anesthesia Event [facility] Main OR [address] [place] [address] Benny Jacques MD 03/26/2024 1:00 PM EST - 03/26/2024 4:00 PM EST Surgery [facility] Main OR [address] [place] [phone] Anjali Albert MD DAVINCI XI HYSTERECTOMY TOTAL HYSTERECTOMY, WITH BILATERAL SALINGO-OOPHARECTOMY AND CYSTOSCOPY [81420 (CPT??)] 03/26/2024 11:24 AM EST - 03/26/2024 7:13 PM EST Hospital Encounter [facility] Main OR [address] [place] [phone] Anjali Albert MD Hypertrophy of uterus; Pelvic pain syndrome; Postmenopausal bleeding; Polyp of corpus uteri; Bilateral ovarian cysts Discharge Disposition: Home or Self Care from Last 3 Months Immunizations Name Administration Dates Next Due Influenza trivalent, 0.5mL ( Fluzone High-dose) 65yo and older 04/03/2023,03/30/2022,06/11/2021,03/11 Influenza trivalent, with pr eservative (Fluzone; Afluria) 6mo and older 03/22/2021 Pneumococcal conjugate 13 va lent (Prevnar 13, PCV13) 2mo and older 06/25/2015 Pneumococcal polysaccharide 23 valent (Pneumovax 23) 2yo and older 07/26/2018 Tdap Tetanus diptheria acell ular pertussis (Boostrix; Adacel) 7yo and older 11/12/2012 Surgical History Surgery Date Site/Laterality Comments TOTAL KNEE ARTHROPLASTY Bilateral COLONOSCOPY KNEE ARTHROPLASTY ROBOTIC ASSISTED HYSTERECTOMY 03/14/2024 - 04/12/2024 with BSO; path benign Medical History Medical History Date Comments Hypertension Asthma Diabetes mellitus (CMS/HCC) Arthritis Chronic bronchitis (CMS/HCC) Social History Tobacco Use Types Packs/Day Years [...] Orientation Straight 03/26/2024 11 :22 AM EST Obstetrics History Para Term AB IAB SAB Ectopic Multiple Livin g Live Births 4 3 3 0 1 0 1 0 0 3 3 Date Outcome GA Total Labor Labor/2nd/3rd Weight Sex Type Anes PTL Aline A1 A5 Name Clin Term Vag-S pont Living Term Vag-S pont Living Term Vag-S pont Living SAB Last Filed Vital Signs Vital Sign Reading Time Taken Comments Blood Pressure 124/60 06/09/2024 8:33 AM EST Pulse 105 06/09/2024 8:33 AM EST Temperature 35.9 ??C (96.6 ??F) 06/09/2024 8:33 AM ES T Respiratory Rate 16 06/09/2024 8:33 AM EST Oxygen Saturation 96% 06/09/2024 8:33 AM EST Inhaled Oxygen Concentration - - Weight 58.1 kg (128 lb) 06/09/2024 8:33 AM EST Height 157.5 cm (5' 2 ) 06/09/2024 8:33 AM EST Body Mass Index 23.41 06/09/2024 8:33 AM EST Plan of Treatment Upcoming Encounters Date Type Department Care Team (Late st Contact Info) Description 06/24/2024 9:30 AM EST Office Visit [facility] [address] [phone] Nettie Garcia NP [address] [phone] 07/04/2024 10:10 AM EST Office Visit [facility] [address] [phone] Nettie Garcia NP [address] [address] 07/16/2024 8:30 AM EST Office Visit Adult Medicine [address] [phone] Guerita Perez MD [address] [place] [phone] 03/20/2025 1:30 PM EST Appointment Radiology Department - [address] [phone] Health Maintenance Due Date Last Done Comments Zoster Vaccines (1 of 2) 02/16/2000 RSV Immunization Patients 60+ Years Old (1 - Risk 60-74 years 1-dose series) 2010 COVID-19 Vaccine ( season) 2024 07/06/2021, 06/09/2020, 05/19/2020 Diabetes: Annual Retina Eye Exam 04/12/2024 04/12/2023 Osteoporosis Screening (Bone Density Screening) 06/22/2024 06/22/2023, 10/27/2021 Diabetes: Blood Sugar Control Test (HGBA1C) 06/27/2024 12/26/2023, 12/26/2023 DTaP,Tdap,and Td Vaccines (2 - Td or Tdap) 09/17/2024 11/12/2012 Postponed from 12/10/2012 (Patient Refused) Medicare Annual Wellness Visit 11/12/2024 11/13/2023 Diabetes: Annual Urine Albumin-Creatinine Ratio (uACR) 12/25/2024 12/26/2023, 10/06/2022 Diabetes: Annual GFR (Glomerular Filtration Rate) 02/26/2025 02/27/2024, 11/09/2023 Hypertension/CHF/CAD Annual BMP Blood Test 02/26/2025 02/27/2024, 11/09/2023 Depression Screening 03/18/2025 03/18/2024, 11/13/2023, 12/11/2022 Diabetes: Annual Foot Exam 03/18/2025 03/18/2024, Falls Risk Assessment 03/18/2025 03/18/2024, 023 Social Influencers of Health Screening 03/18/2025 03/18/2024 Breast Cancer Screening 02/26/2026 02/27/20 24, 02/27/2024, 02/23/2023, Additional history exists Cholesterol Screening (Lipid Panel) 12/25/2028 12/26/2023, 04/10/2023 Colorectal Cancer Screening: Colonoscopy 10/24/2033 10/25/2023 Hepatitis C Screening Completed 02/01/2013 Pneumococcal Vaccine: 50+ Years Completed 07/26/2018, 06/25/2015 Influenza Vaccine Discontinued 04/03/2023, , 06/11/2021, Additional history exists HIB Vaccines Aged Out No longer eligi ble based on patient's age to complete this topic HPV Vaccines Aged Out No longer eligi ble based on patient's age to complete this topic Hepatitis A Vaccines Aged Out No long er eligible based on patient's age to complete this topic Hepatitis B Vaccines Aged Out No long er eligible based on patient's age to complete this topic IPV Vaccines Aged Out No longer eligi ble based on patient's age to complete this topic MMR Vaccines Aged Out No longer eligi ble based on patient's age to complete this topic Meningococcal ACWY Vaccine Aged Out N o longer eligible based on patient's age to complete this topic Meningococcal B Vacine Aged Out No lo nger eligible based on patient's age to complete this topic RSV Immunization Patients Under 20 months Aged Out No longer eligible based on patient's age to complete this topic Varicella Vaccines Aged Out No longer eligible based on patient's age to complete this topic Procedures Procedure Name Priority Date/Time Associated Diagnosis Comments POCT GLUCOSE BLOOD Routine 03/26/2024 5: 20 PM EST POCT GLUCOSE BLOOD Routine 03/26/2024 4: 26 PM EST OXYGEN THERAPY, ADULT Routine 03/26/2024 3:44 PM EST OXYGEN THERAPY, ADULT Routine 03/26/2024 3:44 PM EST TISSUE EXAM Routine 03/26/2024 2:59 PM EST Hypertrophy of uterus Pelvic pain syndrome Postmenopausal bleeding Polyp of corpus uteri Bilateral ovarian cysts TH AN ENDOTRACHEAL(NO CHARGE) Routine 03/26/2024 2:01 PM EST NJ LAP SURG W TOTAL HYSTERECTOMY FOR UTERUS 250G OR LESS W REM TUBE & OVARY 03/26/2024 1:37 PM EST Hypertrophy of uterus Pelvic pain syndrome Postmenopausal bleeding Polyp of corpus uteri Bilateral ovarian cysts Case Notes 23 HR BED, ECG 12-LEAD STAT 03/26/2024 11:50 AM EST CBC WITH AUTO DIFFERENTIAL Routine 03/26/2024 11:45 AM EST TYPE AND SCREEN Routine 03/26/2024 11:45 AM EST CBC AND DIFFERENTIAL Routine 03/26/2024 11:45 AM EST POCT GLUCOSE BLOOD Routine 03/26/2024 11 :41 AM EST SCREENING MAMMOGRAPHY BI 2-VIEW BREAST INC CAD Routine 02/27/2024 2:50 PM EDT Encounter for screening mammogram for malignant neoplasm of breast DXA BONE DENSITY STUDY 1+ SITS AXIAL SKEL Routine 06/22/2023 9:39 AM EST Asymptomatic menopausal state LIPID PANEL Routine 04/10/2023 HM HEPATITIS C SCREENING Routine 02/01/2013 from Last 3 Months or Most Recently Relevant to Health Maintenance Results * (ABNORMAL) POCT Glucose, blood (03/26/2024 5:20 PM EST) Only the most recent of3 resultswithin the time period is included. Glucose POCT 210(H) 70 - 100 mg/dL 03/26/2024 5:[address] [facility] Blood Capillary blood specimen / Unknown 03/26/2024 5:20 PM EST 03/26/2024 5:22 PM EST us Anjali Albert MD LAB POINT OF CARE T EST DOCKED DEVICE UNSOLICITED RESULTS Final Result [facility] [address] [place] [address], [place] [phone] * Tissue exam (03/26/2024 2:59 PM EST) Final Diagnosis Uterus, cervix, bilateral tubes and ovaries; hysterectomy with bilateral salpingo-oophorec favian: Benign uterine corpus with leiomyomata and adenomyosis, 180 g. Atrophic endometrium with cystic atrophy. Benign cervix with nabothian cysts. Benign ovaries with simple cortical cysts and corpora albicantia. Fallopian tubes with paratubal cysts. Separate simple cyst wall. 03/31/2024 10:30 AM EST [facility] Gross Description A. Uterus, UTERUS, CERVIX AND BILATERAL TUBES & OVARIES: Labeled uterus . Received in formalin is an asymmetrical uterine corpus with attached cervix and separate adnexa with a combined weight of 180 grams. The uterine corpus measures up to 8.0 cm (anterior to posterior) x 5.0 cm (cornu to cornu) x 4.5 cm (lower uterine segment to fundus). The serosa is eastman-red and hemorrhagic with adhesions and bulging subserosal nodules measuring up to 5.0 cm in greatest diameter (largest on probable posterior aspect). The lateral borders and paracervical tissues are cauterized. The attached cervix measures 2.5 cm in length and 2.5 cm and with. The ectocervical mucosa is white to red, glistening and shows a central, patent, 0.7 cm in greatest diameter os. The specimen is opened. The endocervical lining is eastman-pink and glistening. The cut surfaces of the cervix are white and rubbery, with a few tiny nabothian cysts. The irregular to distorted endometrial cavity measures 4.0 cm in length and up to 1.5 cm and with. The endometrium is eastman, glistening and measures approximately 0.1 cm. In addition to the subserosal nodules there are multiple intramural nodules measuring up to 1.8 cm in greatest diameter. The majority of the nodules are homogeneous, with no areas of hemorrhage or necrosis. The largest subserosal nodule is markedly calcified with yellow to centrally brown degenerative cut surfaces. The uninvolved myometrium measures approximately 2.0 cm in thickness and has eastman rubbery cut surfaces. Additionally received in the specimen container is a 2.0 x 1.5 x 1.0 cm ovary with an attached 4.0 x 0.5 cm fimbriated fallopian tube. The ovarian capsule is eastman-white, cerebriform and intact. The cut surfaces are eastman-white with a few smooth-walled, unilocular cysts measuring up to 0.2 cm in greatest diameter and scattered corpora lutea. The fallopian tube has a esatman to red serosa and on sectioning shows a central, pinpoint lumen. Additionally received in the specimen container are two portions of disrupted tissue one of which has a 1.0 cm portion of fallopian tube which measures up to 0.45 cm in diameter. There is scant attached fimbria. The serosa is eastman-pink and glistening and on sectioning the cut surfaces show a central, pinpoint lumen. Additionally received is a collapsed 5.0 cm in greatest diameter cystic ovary. The capsule is eastman-white and smooth with a central 0.65 cm in greatest diameter cystic capsular nodule. Additionally the capsule has up to 1.5 cm of attached stretched, thin portion of fimbria. On opening the cyst contains a small amount of clear fluid. The cyst lining contains a solitary focus of excrescences measuring up to 0.3 cm in greatest diameter. The remaining cyst lining is smooth, eastman-white and focally fibrotic. Residual ovarian stroma is absent. Case Therapist sections are submitted in fourteen cassettes. 1-anterior cervix, one piece 2-posterior cervix, one piece 3-4 full-thickness anterior endomyometrium, one piece 5-6 full-thickness posterior endomyometrium, one piece each 7-8 sections of nodules, four pieces each 9-sections of largest subserosal nodule with degenerative cut surfaces, three pieces 10-11 sections of ovary with attached fallopian tube (10-ovary, three pieces, 53-[id number] of fallopian tube and the longitudinally bisected fimbriated end, four pieces) 12-sections of separately received fragmented tissue including fimbria, attached tissue and cross-section of fallopian tube, three pieces 13-14 sections of separately received cyst including capsular nodules and attached stretched fimbria, four pieces each TS 03/31/2024 10:30 AM [facility] Disclaimer Unless otherwise specified, all tissue is 10% NB formalin fixed and paraffin embedded. 03/31/2024 10:30 AM [facility] Tissue Uterine structure / Unknown 03/26/2024 2:59 PM EST 03/26/2024 4:12 PM EST us Anjali Albert MD LAB PATHOLOGY ORDERABLES Fi nal Result [facility] [address] [place] [address], [place] [phone] * TH AN ENDOTRACHEAL(NO CHARGE) (03/26/2024 2:01 PM EST) Narrative Garret Craft CRNA - 03/26/2024 2:01 PM EST Garret Craft CRNA ? 03/26/2024 ??2:04 PM General Information and Staff Patient location during procedure: OR Anesthesiologist: Benny Jacques MD Resident/CUTCH CLEANER: Garret Craft CRNA Performed: anesthesiologist and resident/CUTCH CLEANER/CAA Performed by: Garret Craft CRNA Authorized by: Benny Jacques MD ?? Intubation Additional Comments Intubated on 1st attempt by EMT student, Ad. Teeth and lips intact. Mac 3 Grade IIB. Cords clear. Airway not difficult Urgency: elective Final Airway Details Successful airway: ETT Cuffed: yes Successful intubation technique: direct laryngoscopy Facilitating devices/methods: anterior pressure/BURP Blade size: #3 ETT size (mm): 7.0 Cormack-Lehane Classification: grade IIb - view of arytenoids or posterior of glottis only Placement verified by: chest auscultation Measured from: gums ETT to gums (cm): 21 Number of attempts at approach: 1 Number of other approaches attempted: 0Final airway type: endotracheal airway Indications and Patient Condition Indications for airway management: anesthesia Spontaneous ventilation: present Sedation level: Yes Preoxygenated: yes Soft Tissue Damage: No Dentition Unchanged: Yes Patient position: neutral MILS maintained throughout Mask difficulty assessment: 1 - vent by mask Benny Jacques MD ANESTHESIA ORDERABLES Final Re sult * EKG 12 lead (03/26/2024 11:50 AM EST) Ventricular Rate ECG 81 BPM GEMUSE Atrial Rate 81 BPM GEMUSE P-R Interval 172 ms GEMUSE QRS Duration 86 ms GEMUSE Q-T Interval 376 ms GEMUSE QTc 436 ms GEMUSE P Wave [place] 57 degrees GEMUSE R [place] 32 degrees GEMUSE T [place] 35 degrees GEMUSE ECG Interpretation Normal sinus rhythm Normal ECG No previous ECGs available Confirmed by Natasha ERVIN JOHN ([id number]) on 03/27/2024 6:59:57 AM GEMUSE 03/26/2024 11:5 0 AM EST 03/27/2024 6:59 AM EST us Anjali Albert MD ECG ORDERABLES Final Resul t GEMUSE * CBC auto differential (03/26/2024 11:45 AM EST) WBC 5.4 4.8 - 10.8 K/mcL LAB HEMETOLOGY METHOD 03/26/2024 11:53 AM [facility] RBC 4.70 3.80 - 4.80 M/[facility] LAB HEMETOLOGY METHOD 03/26/2024 11:53 AM [facility] Hemoglobin 13.2 11.5 - 16.0 g/dL LAB HEMETOLOGY METHOD 03/26/2024 11:53 AM [facility] Hematocrit 39.7 35.0 - 47.0 % LAB HEMETOLOGY METHOD 03/26/2024 11:53 AM [facility] MCV 85.2 79.0 - 98.0 FL LAB HEMETOLOGY METHOD 03/26/2024 11:53 AM [facility] MCH 28.3 27.0 - 32.0 pcg LAB HEMETOLOGY METHOD 03/26/2024 11:53 AM [facility] MCHC 33.2 32.0 - 37.0 g/dL LAB HEMETOLOGY METHOD 03/26/2024 11:53 AM [facility] RDW 13.7 11.0 - 15.0 % LAB HEMETOLOGY METHOD 03/26/2024 11:53 AM [facility] Platelets 218 130 - 400 K/mcL LAB HEMETOLOGY METHOD 03/26/2024 11:53 AM [facility] MPV 10.4 7.0 - 11.0 FL LAB HEMETOLOGY METHOD 03/26/2024 11:53 AM [facility] NRBC 0.0 <1.0 % LAB HEMETOLOGY METHOD 03/26/2024 11:53 AM [facility] NRBC Absolute 0.00 <0.10 K/mcL LAB HEMETOLOGY METHOD 03/26/2024 11:53 AM [facility] Neutrophils Relative 41.3 % LAB HEMETOLOGY METHOD 03/26/2024 11:53 AM [facility] Lymphocytes Relative 46.0 % LAB HEMETOLOGY METHOD 03/26/2024 11:53 AM [facility] Monocytes Relative 8.4 % LAB HEMETOLOGY METHOD 03/26/2024 11:53 AM [facility] Eosinophils Relative 3.4 % LAB HEMETOLOGY METHOD 03/26/2024 11:53 AM [facility] Basophils Relative 0.7 % LAB HEMETOLOGY METHOD 03/26/2024 11:53 AM [facility] Immature Granulocytes Relative 0.2 % LAB HEMETOLOGY METHOD 03/26/2024 11:53 AM [facility] Neutrophils Absolute 2.22 1.50 - 7.00 K/mcL LAB HEMETOLOGY METHOD 03/26/2024 11:53 AM [facility] Lymphocytes Absolute 2.47 1.00 - 5.00 K/mcL LAB HEMETOLOGY METHOD 03/26/2024 11:53 AM [facility] Monocytes Absolute 0.45 0.20 - 1.00 K/mcL LAB HEMETOLOGY METHOD 03/26/2024 11:[address] [facility] Eosinophils Absolute 0.18 0.00 - 0.50 K/[facility] LAB HEMETOLOGY METHOD 03/26/2024 11:[address] [facility] Basophils Absolute 0.04 0.00 - 0.20 K/[facility] LAB HEMETOLOGY METHOD 03/26/2024 11:[address] [facility] Immature Granulocytes Absolute 0.01 0.00 - 0.03 K/[facility] LAB HEMETOLOGY METHOD 03/26/2024 11:[address] [facility] Blood Venous blood specimen / Unknown Venipuncture / Unknown 03/26/2024 11:45 AM EST 03/26/2024 11:48 AM EST us Flavia GAGNON LAB BLOOD ORDERABLES Final R esult [facility] [address] [place] [address], [place] [phone] * Type and screen (03/26/2024 11:45 AM EST) ABO Group A 03/26/2024 12:[address] [facility] Rh Type Positive 03/26/2024 12:[address] [facility] Antibody Screen Negative 03/26/2024 12:[address] [facility] Blood Venous blood specimen / Unknown Venipuncture / Unknown 03/26/2024 11:45 AM EST 03/26/2024 11:48 AM EST us Flavia GAGNON LAB BLOOD BANK TEST ORDERABL ES Final Result [facility] [address] [place] [address], [place] [phone] * SCREENING MAMMOGRAPHY BI 2-VIEW BREAST INC CAD (02/27/2024 2:50 PM EDT) Anatomical Region Laterality Modality Radiographic Autumn ging 02/23/2023 2:03 PM EDT Narrative 02/28/2024 10:03 AM EDT This is a summary report. The complete report is available in the patient's medical record. If you cannot access the medical record, please contact the sending organization for a detailed fax or copy. Full field digital screening tomosynthesis mammography, reviewed with CAD and compared to previous. The breast tissue is heterogeneously dense, limiting sensitivity. No suspicious mass, architectural distortion or suspicious calcifications are identified. IMPRESSION: : Dense breast tissue, limiting the sensitivity of mammography. No mammographic evidence of malignancy. BIRADS 1-Negative; N. Breast density: The breasts are heterogeneously dense, which may obscure small masses. 5 year breast cancer risk assessment 1.0 % Lifetime breast cancer risk assessment 2.4 % Breast cancer risk category Low (<15%) Location: [facility], [address] [place] [address], [id number], [phone] Procedure Note Juan Carlos Beck MD - 03/11/2024 This is a summary report. The complete report is available in thepatient's medical record. If you cannot access the medical record, pleasecontact the sending organization for a detailed fax or copy. Full field digital screening tomosynthesis mammography, reviewed with CADand compared to previous. The breast tissue is heterogeneously dense,limiting sensitivity. No suspicious mass, architectural distortion orsuspicious calcifications are identified. IMPRESSION: : Dense breast tissue, limiting the sensitivity of mammography. Nomammographic evidence of malignancy. BIRADS 1-Negative; N. Breast density: The breasts are heterogeneously dense, which may obscuresmall masses. 5 year breast cancer risk assessment 1.0 % Lifetime breast cancer risk assessment 2.4 % Breast cancer risk category Low (<15%) Location: [facility], [address] [place] [address], [id number], [phone] Guerita Perez MD IMG XR PROCEDURES Final Result * DXA BONE DENSITY STUDY 1+ JOSEP CAIN (06/22/2023 9:39 AM EST) Anatomical Region Laterality Modality Bone Densitometr y 04/16/2023 12:5 4 PM EST Narrative 06/25/2023 4:35 PM EST BONE DENSITY ? Lumbar Spine T-score is -2.9 ?? (SD relative to 20-29 y/o adult) Z-score is -0.6 ??(SD relative to age matched peers) This is consistent with osteoporosis by criteria defined by the WHO. Left Hip T-score is -2.0 Z-score is -0.2 This is consistent with osteopenia by criteria defined by the WHO. Comparison exam(s): significant decrease in bone density of ??lumbar spine when compared to most recent bone density examination ?? Confidence level is +/-95%. Impression: Based on the World Health Organization criteria, Bing Sexton should be classified as having osteoporosis. The [facility] Department of Internal Medicine recommends using National Osteoporosis Foundation (NOF) guidelines in treatment decisions related to osteoporosis. NOF guidelines suggest considering treatment for postmenopausal women and men aged 50 or older presenting with the following: History of hip or vertebral fracture. T-score less than or equal to -2.5 (DXA) at the femoral neck, total hip, or spine, after appropriate evaluation to exclude secondary causes. Low bone mass (T-score between -1.0 and -2.5 at the femoral neck or spine) AND a 10-year probability of a hip fracture greater than or equal to 3% OR a 10-year probability of a major osteoporosis-related fracture greater than or equal to 20% based on the [place]-adapted WHO algorithm Please note that all treatment decisions require clinical judgment and consideration of individual patient factors, including patient preferences, co-morbidities, previous drug use, risk factors not captured in the FRAX model (e.g., frailty, falls, vitamin D deficiency, increased bone turnover, interval significant decline in bone density) and possible under- or over-estimation of fracture risk by FRAX. Procedure Note Ashley Farah MD - 12/31/2023 BONE DENSITY Lumbar Spine T-score is -2.9 (SD relative to 20-29 y/o adult) Z-score is -0.6 (SD relative to age matched peers) This is consistent with osteoporosis by criteria defined by the WHO. Left Hip T-score is -2.0 Z-score is -0.2 This is consistent with osteopenia by criteria defined by the WHO. Comparison exam(s): significant decrease in bone density of lumbar spinewhen compared to most recent bone density examination Confidence level is +/-95%. Impression: Based on the World Health Organization criteria, Bing Sexton should beclassified as having osteoporosis. The [facility] Department of Internal Medicine recommendsusing National Osteoporosis Foundation (NOF) guidelines in treatmentdecisions related to osteoporosis. NOF guidelines suggest consideringtreatment for postmenopausal women and men aged 50 or older presentingwith the following: History of hip or vertebral fracture. T-score less than or equal to -2.5 (DXA) at the femoral neck, total hip,or spine, after appropriate evaluation to exclude secondary causes. Low bone mass (T-score between -1.0 and -2.5 at the femoral neck or spine)AND a 10-year probability of a hip fracture greater than or equal to 3% ORa 10-year probability of a major osteoporosis-related fracture greaterthan or equal to 20% based on the [place]-adapted WHO algorithm Please note that all treatment decisions require clinical judgment andconsideration of individual patient factors, including patientpreferences, co-morbidities, previous drug use, risk factors not capturedin the FRAX model (e.g., frailty, falls, vitamin D deficiency, increasedbone turnover, interval significant decline in bone density) and possibleunder- or over-estimation of fracture risk by FRAX. Abril GAGNON [facility] [place]ED[place] Final Result * Lipid panel (04/10/2023) LDL/HDL Ratio 3 Triglycerides 171 mg/dL Cholesterol 186 mg/dL HDL 68 mg/dL LDL Cholesterol 84 mg/dL Blood Venous blood specimen / Unknown us Historical Provider LAB BLOOD ORDERABLES Soledad l Result * Hepatitis C Screening (02/01/2013) Hepatitis C Screening Negative us Historical Provider HEALTH MAINTENANCE Final Result from Last 3 Months or Most Recently Relevant to Health Maintenance Insurance [facility] MEDIC[facility] Member Subscriber Plan / Payer (Ef fective 2023-Present) Name:SextonQuentin bealagros Relation to Subscriber:Self Name:Sexton, Bing Payer ID:[id number] Group ID:[id number] Type:Not on file Address: [place] [address] [address] [phone] Advance Directives * Full Code - Default (Latest Code Status on File) Date Activated Date Inactivated Comments 03/26/2024 11:33 AM 03/26/2024 9:13 PM This is o rder is used when code status has not been discussed with the patient, or code status is otherwise unknown/unconfirmed To update the patient's code status, place a code status order. Do not modify or discontinue any currently active code status orders. Care Teams Assistant Fitness Manager Relationship Specialty Start Date End Date Guerita Perez MD [address] [place] [id number] PCP - General Internal Medicine 03/19/24
--- OUTSIDE RECORDS SUMMARY | 2024-06-23 16:14 | XMS_ITS | Encounter Summary ---
Author Organization [facility] Address [address] [place] [address] Care Team Providers Care Vessel Liner Name Role Phone Guerita Perez MD Primary Care Prov ider Reason for Visit * Reason Comments Asthma Sick visit asthma fl are up x3 days Encounter Details Date Type Department Care Team (Late st Contact Info) Description 06/09/2024 8:30 AM EST Office Visit Pulmonolgy - [place] [address] [place] [address] Nettie Garcia NP [address] [place] [address] Moderate persistent asthma without complication (Primary Dx); Acute cough; Seasonal allergic rhinitis, unspecified trigger Social History Tobacco Use Types Packs/Day Years [...] Mass Index 23.41 06/09/2024 8:33 AM EST documented in this encounter Ordered Prescriptions Prescription Sig Dispense Quantity Refills Last Filled Start Date End Date Advair HFA 230-21 mcg/actuation inhalerIndication s:Moderate persistent asthma without complication Inhale 2 puffs by mouth 2 (two) times a day. Rinse mouth with water after use to reduce aftertaste and incidence of candidiasis. Do not swallow. 1 each 5 06/09/2024 5 zafirlukast (Accolate) 20 mg tabletIndications :Moderate persistent asthma without complication Take 1 tablet (20 mg total) by mouth 2 (two) times a day. 60 each 1 06/09/2024 6 albuterol 2.5 mg /3 mL (0.083 %) nebulizer solutionIndicatio ns:Moderate persistent asthma without complication Take 3 mL (2.5 mg total) by nebulization every 4 (four) hours if needed for shortness of breath or wheezing. 300 mL 1 06/09/2024 predniSONE (DELTASONE) 20 mg tabletIndications :Moderate persistent asthma without complication Take 2 tablets (40 mg total) by mouth 1 (one) time each day for 5 days. 10 each 06/09/2024 5 predniSONE (DELTASONE) 20 mg tabletIndications :Moderate persistent asthma without complication Take 2 tablets (40 mg total) by mouth 1 (one) time each day for 5 days. 10 each 06/09/2024 5 documented in this encounter Progress Notes * Nettie Garcia NP - 06/09/2024 8:30 AM EST ADULT PULMONARY MEDICINE FOLLOW UP CHIEF COMPLAINT or REASON FOR CONSULTATION: Asthma (Sick visit asthma flare up x3 days) IDENTIFIER: Bing Sexton is a 74 y.o. female, unaccompanied. History of Present Illness The patient is a 74-year-old female who comes for a follow-up of asthma. Her last visit was on 01/02/2024, and since then, she has had no exacerbations requiring rehabilitation or prednisone. She reports experiencing mild wheezing for the past week, which she has been managing with her inhaler. Her symptoms worsened since especially worsened at night, characterized by a dry coughand increased wheezing. These symptoms have disrupted her sleep, necessitating the use of a recliner and 2 to 3 pillows to facilitate breathing. She also reports mild chest tightness and worsening shortness of breath, which she attributes to her asthma. Despite these symptoms, she is able to climb 3 to 4 flights of stairs. She has not taken prednisone for a long time but states helped when took it. She reports no nasal congestion, runny nose, or fevers. She has tested negative for COVID-19 multiple times. She has previously tried Singulair(montelukast) without success. Never tried Accolate. She uses Zyrtec every few days and Flonase as needed. She does not have allergies or acid reflux symptoms. She has been using Advair 230/21 2 puffs twice daily, and Albuterol as needed. Initially, she used albuterol once daily, but due to the recent cold, she has increased the frequency to twice daily. She has been using a nebulizer every 4 to 5 hours. Finds the orange inhaler(Flovent) more effective than the purple one. She has been monitoring her blood sugar levels every other day, which have been well-controlled, typically around 125, although she did record a reading of 137 one morning. She is currently on Jardiance and metformin 500 mg, 1 tablet in the morning and 1 tablet at dinnertime. She will monitor more closely on Prednisone. ALLERGIES: Allergies Allergen Reactions Oxycodone Other Reaction(s): LIPS SWELLED Benzonatate Hives and Rash Lovastatin Rash Penicillin G Hives Other Reaction(s): Hives/Urticaria Pravastatin Headache ACTIVE MEDICATIONS: Outpatient Medications Marked as Taking for the 06/09/24 encounter (Office Visit) with Nettie Garcia NP Medication Sig Dispense Refill Advair HFA 230-21 mcg/actuation inhaler INHALE 2 PUFFS BY MOUTH TWICE DAILY RINSE MOUTH AFTER USING. AND SPIT OUT albuterol 2.5 mg /3 mL (0.083 %) nebulizer solution Take 3 mL (2.5 mg total) by nebulization every 4 (four) hours if needed for shortness of breath or wheezing. 300 mL 1 albuterol HFA (PROAIR HFA ; PROVENTIL HFA ; VENTOLIN HFA) 90 mcg/actuation inhaler Inhale 2 puffs by mouth 4 (four) times a day. alendronate (FOSAMAX) 70 mg tablet Take 1 tablet (70 mg total) by mouth every 7 (seven) days. betamethasone dipropionate (DIPROSONE) 0.05 % cream APPLY TO THE AFFECTED AREA(S) ON RIGHT THIGH TWICE DAILY FOR 2 WEEKS, STOP FOR 1 WEEK. REPEAT NEEDED FOR FLARE. blood glucose control high,low solution Use to calibrate each new bottle of test strips blood sugar diagnostic (FreeStyle Lite Strips) test strip USE DIRECTED TO TEST BLOOD SUGAR EVERYDAY blood-glucose meter misc Use to test blood sugar once daily. cetirizine (ZyrTEC) 10 mg tablet 1 tablet (10 mg total). cholecalciferol (VITAMIN D-3) 25 mcg (1,000 unit) capsule Take 1 capsule (1,000 Units total) by mouth 1 (one) time each day. empagliflozin (Jardiance) 10 mg tablet Take 1 tablet (10 mg total) by mouth 1 (one) time each day. Pt tp stop 1 week pror to sx 90 tablet 0 ezetimibe (ZETIA) 10 mg tablet Take 1 tablet (10 mg total) by mouth 1 (one) time each day. 90 tablet 1 FREESTYLE LANCETS MISC Test fasting blood sugar 1 time daily hydroCHLOROthiazide (MICROZIDE) 12.5 mg capsule Take 1 capsule (12.5 mg total) by mouth 1 (one) time each day in the morning. 45 capsule 1 lisinopriL (PRINIVIL,ZESTRIL) 10 mg tablet Take 1 tablet (10 mg total) by mouth 1 (one) time each day. 90 tablet 1 metFORMIN XR (GLUCOPHAGE-XR) 500 mg 24 hr tablet Take 1 tablet (500 mg total) by mouth 2 (two) times a day. Do not crush, chew, or split. 180 tablet 1 [DISCONTINUED] albuterol 2.5 mg /3 mL (0.083 %) nebulizer solution 3 mL (2.5 mg total) every 4 (four) hours if needed. [DISCONTINUED] ciclopirox (PENLAC) 8 % solution Apply topically at bedtime. Apply over nail and surrounding skin. Apply daily over previous coat. After seven (7) days, may remove with alcohol and continue cycle. 6.6 mL 0 [DISCONTINUED] fluticasone HFA (Flovent HFA) 110 mcg/actuation inhaler Inhale 2 puffs by mouth 2 (two) times a day. [DISCONTINUED] ondansetron (ZOFRAN) 4 mg tablet Take 1 tablet (4 mg total) by mouth every 8 (eight)hours if needed for nausea or vomiting. 10 tablet 0 [DISCONTINUED] simethicone (MYLICON) 80 mg chewable tablet Chew 1 tablet (80 mg total) every 6 (six) hours if needed (gas pain / bloating). 10 tablet 0 [DISCONTINUED] traMADoL (ULTRAM) 50 mg tablet Take 1 tablet (50 mg total) by mouth every 6 (six) hours if needed for severe pain. Max Daily Amount: 200 mg 8 tablet 0 REVIEW OF SYSTEMS: GENERAL: Negative for malaise, significant weight loss and fever HEENT: No changes in hearing or vision, no nose bleeds, no allergy symptms NECK: Negative for lumps, goiter, pain and significant neck swelling. Occasional moring neck pain. RESPIRATORY: see HPI CARDIOVASCULAR: No chest pain, leg swelling or palpitations GI: No abdominal discomfort, blood in stools or black stools, or acid reflex : No dysuria, frequency or incontinence or nocturia MUSCULOSKELETAL: No joint pain or swelling, back pain, or muscle pain. SKIN: No lesions, rash or itching PSYCH: No sleep disturbance, anxiety, depression, claustrophobia or SI/HI. HEMATOLOGY/LYMPHOLOGY No prolonged bleeding, easy bruisability or swollen nodes ENDOCRINE: No cold or heat intolerance, polyuria, polydipsia or goiter. NEURO: No persistent headache, syncope, seizures, weakness or numbness The remainder of the review of systems is noncontributory PAST MEDICAL HISTORY: Past Medical History: Diagnosis Date Arthritis Asthma Chronic bronchitis (CMS/HCC) Diabetes mellitus (CMS/HCC) Hypertension PAST SURGICAL HISTORY: Past Surgical History: Procedure Laterality Date COLONOSCOPY KNEE ARTHROPLASTY ROBOTIC ASSISTED HYSTERECTOMY 03/2024 with BSO; path benign TOTAL KNEE ARTHROPLASTY Bilateral SOCIAL HISTORY: TOBACCO: Not used just tried at 17 years old. ALCOHOL: Occasionally before. 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 No lung cancer. IMMUNIZATION: 2021 Influenza Vaccine 2016 Pneumococcal 13 2018 Pneumococcal 23 2020 Pfizer PULMONARY HOSPITALIZATION Hx: Never VITAL SIGNS: Visit Vitals BP 124/60 Pulse 105 Temp 35.9 ??C (96.6 ??F) (Temporal) Resp 16 Ht 1.575 m (62 ) Wt 58.1 kg (128 lb) LMP (LMP Unknown) SpO2 96% BMI 23.41 kg/m?? OB Status Postmenopausal Smoking Status Never BSA 1.58 m?? Physical Exam General Appearance: WD and WN. Alert and in no acute distress. Speaks in full sentences. No stridor. Eyes: Conjunctiva and sclera normal. Nose/Sinus: Nares normal. Septum midline. Mucosa pink with no drainage or sinus tenderness. Mouth/Throat: No redness, white patches, or thrush in the throat. Neck: Neck supple, thyroid symmetric and of normal size. Respiratory: Mild expiratory wheezing on the left side of the lungs. Cardiovascular: Heart is normal. Gastrointestinal: Bowel sounds normoactive, soft, non-tender. Lymphatic: No cervical and supra-clavicular lymphadenopathy. Extremities: Warm, well perfused without clubbing, cyanosis, or edema. Skin: Warm and dry, no rash. Neurological: Awake, alert and oriented x 3, no focalization. DIAGNOSTIC DATA: Peripheral oxygen saturation or SpO2 on RA today is 99%. CARDIOPULMONARY TEST: 09/13/2022 Last Pulmonary function Test showed: FEV1 89% FVC 99%. No response to bronchodilators. TLC is 111% RV is 124%. DLCO 97% Interpretation: Essentially normal pulmonary function studies. FENO on 09/12/2022 is 51ppb consistant with airway inflamation RADIOLOGIST IMAGING: RADIOLOGIC EXAM CHEST 2 VIEWS Result Date: 09/14/2022 History: Follow-up for infiltrate. Chest PA and lateral: Compared to 08/14/2022. There has been complete radiographic clearing at the left lung base compared to the previous radiograph. The lungs areclear. The vasculature is not congested. The cardiac and mediastinal silhouettes appear normal. There been no other significant interval changes. IMPRESSION Interval resolution of the left basilar infiltrate seen previously. RADIOLOGIC EXAM CHEST 2 VIEWS Result Date: 08/14/2022 Chest, 2 views. History dry cough and wheezing. Comparison with prior study from 05/17/2020. There is a crowding of the markings at the left base medially which could represent atelectasis or linear infiltrate. Right lung is clear. There is no pneumothorax, pleural effusions or congestive heart failure. Heart is normal in size. CONCLUSIONS: Atelectasis versus infiltrate at the left base. Follow-up is recommended to ensure resolution. ASSESSMENT: 1. Moderate persistent asthma without complication albuterol 2.5 mg /3 mL (0.083 %) nebulizer solution zafirlukast (Accolate) 20 mg tablet DISCONTINUED: predniSONE (DELTASONE) 20 mg tablet 2. Acute cough 3. Seasonal allergic rhinitis, unspecified trigger Assessment & Plan 1. Asthma: Acute on chronic. - Prescription for prednisone, 2 tablets daily for 5 days with food. - Use albuterol every 6 hours for 5 days, then as needed. - Prescription for Accolate 20 mg, to be taken twice daily. - Continue using Flonase and Zyrtec as needed. - Refills for Advair and albuterol solution for the nebulizer provided. - Monitor blood sugar levels closely while on prednisone. - Inform the clinic immediately if any new symptoms arise. 2. Diabetes Mellitus. - Continue taking Jardiance and metformin 500 mg, 1 tablet in the morning and 1 tablet at dinnertime. - Monitor blood sugar levels closely while on prednisone. Follow-up - Follow up on 07/04/2024. - The patient was educated about asthma exacerbation, her assessment and plan was reviewed and explained, some educational material about his pulmonary problems was given with the discharge summary. All questions were answered.The above assessment and plan was discussed with Alejandro Lozoya MD ( ). Diagnostic testing results were available for review during the discussion. Based on physical exam, symptomatology, tests requested and baseline pulmonary evaluation/disease, I instructed the patient to follow-up with as scheduled and as needed in the interim if other concerns/worsening symptoms. - Follow up with Guerita Sweeney for the other co-morbidities. Thanks Guerita Sweeney for allowing me to have the opportunity to assist in the care of this patient. documented in this encounter Plan of Treatment Upcoming Encounters Date Type Department Care Team (Late st Contact Info) Description 06/24/2024 9:30 AM EST Office Visit Pulmonolgy [facility] [address] [phone] Nettie Garcia NP 175 [facility] [address] [place] [address] 07/04/2024 10:10 AM EST [facility] [address] [phone] Nettie Garcia NP [address] [address] 07/16/2024 8:30 AM EST Office Visit [facility] - [address] [phone] Guerita Perez MD [address] [place] [address] 03/20/2025 1:30 PM EST Appointment Radiology Department - [address] [phone] documented as of this encounter Visit Diagnoses Diagnosis Moderate persistent asthma without complication- Primary Acute cough Seasonal allergic rhinitis, unspecified trigger Encounter for screening mammogram for breast cancer documented in this encounter Discontinued Medications Medication Sig Discontinue Reason Start Date End Da te fluticasone HFA (Flovent HFA) 110 mcg/actuation inhaler Inhale 2 puffs by mouth 2 (two) times a day. Formulary change 05/20/2023 06/09/2024 albuterol 2.5 mg /3 mL (0.083 %) nebulizer solution 3 mL (2.5 mg total) every 4 (four) hours if needed. Reorder 03/28/2023 06/09/2024 ciclopirox (PENLAC) 8 % solution Apply topically at bedtime. Apply over nail and surrounding skin. Apply daily over previous coat. After seven (7) days, may remove with alcohol and continue cycle. 03/18/2024 06/09/2024 traMADoL (ULTRAM) 50 mg tabletIndications:for acute post op pain Take 1 tablet (50 mg total) by mouth every 6 (six) hours if needed for severe pain. Max Daily Amount: 200 mg 03/26/2024 06/09/2024 simethicone (MYLICON) 80 mg chewable tablet Chew 1 tablet (80 mg total) every 6 (six) hours if needed (gas pain / bloating). 03/26/2024 06/09/2024 ondansetron (ZOFRAN) 4 mg tabletIndications:preve ntion of post-operative nausea and vomiting Take 1 tablet (4 mg total) by mouth every 8 (eight) hours if needed for nausea or vomiting. 03/26/2024 06/09/2024 predniSONE (DELTASONE) 20 mg tabletIndications:Moder ate persistent asthma without complication Take 2 tablets (40 mg total) by mouth 1 (one) time each day for 5 days. 06/09/2024 06/09/2024 Advair HFA 230-21 mcg/actuation inhaler INHALE 2 PUFFS BY MOUTH TWICE DAILY RINSE MOUTH AFTER USING. AND SPIT OUT Reorder 06/09/2024 documented as of this encounter Additional Health Concerns Assessment Noted Time PHQ-9 Depression Total Score: 0 03/18/20 8:43 AM EST documented as of this encounter Care Teams Vessel Liner Relationship Specialty Start Date End Date Guerita Perez MD [address] [place] [id number] PCP - General Internal Medicine 03/19/24 documented as of this encounter
[2024-06-23 18:01] LABS: Influenza A PCR NEGATIVE (Negative); Influenza B PCR NEGATIVE (Negative); Resp Syncy Virus RNA Qual PCR NEGATIVE (Negative); SARS COV2 PCR INHOUSE POSITIVE (Negative)
== END 2024-06-23 14:21 | disposition home or self-care (01) ==
LOC: HO.LAB 14:20
PROVIDERS: PCP Internal Medicine; Visit Provider Physician Assistant
DX: J06.9 Acute upper respiratory infection, unspecified (principal); Z11.52 Encounter for screening for COVID-19
CPT/HCPCS: 0241U; 99202

== ENCOUNTER 2024-11-26 00:48 | Emergency (ER) | payer OTHER, SELFPAY ==
[2024-11-26 00:57] VITALS: BP 172/79; PULSE 87
[2024-11-26 00:58] VITALS: BP 165/78; BP 169/71; PULSE 77
[2024-11-26 00:59] VITALS: BP 154/78; PULSE 72
[2024-11-26 01:00] VITALS: BP 169/81; BP 172/79; PULSE 75; PULSE 87; RESP 16; RESP 17; TEMP 36.4; O2SAT 97; O2SAT 98; BMI 23.8
[2024-11-26 01:22] LABS: Hematocrit 39.5 % (37.0-47.0); Hemoglobin 13.6 g/dl (12.0-16.0); Imm Gran Abs Auto 0.01 X10*3/uL (0.00-0.03); Imm Gran Pct Auto 0.2 % (0.0-0.4); Lymphocytes Absolute Auto 1.8 X10*3/uL (1.2-4.9); MANUAL DIFF FLAG NO; Mean Corpuscular HGB Conc 34.4 g/dl (31.0-35.0); Mean Corpuscular Hemoglobin 28.9 pg (27.0-33.0); Mean Corpuscular Volume 84.0 fL (80.0-98.0); NRBC Abs Auto 0.000 X10*3/uL (0.0-0.012); NRBC Pct Auto 0.0 /100WBC (0.0-0.2); Platelet Count 224 X10*3/uL (160-400); Red Blood Count 4.70 X10*6/uL (4.20-5.50); White Blood Count 6.7 X10*3/uL (4.8-10.8)
[2024-11-26 01:39] LABS: Alanine Aminotransferase 15 U/L (0-31); Albumin Level 4.8 g/dL (3.5-5.0); Alkaline Phosphatase 60 U/L (39-117); Anion Gap 17 (12-20); Aspartate Amino Transferase 19 U/L (5-31); Blood Urea Nitrogen 15 mg/dL (9-16); Calcium 9.8 mg/dL (8.4-10.2); Carbon Dioxide 25 mmol/L (22-29); Chloride 102 mmol/L (96-108); Creatinine Clr Calc Pharmacy 56.5; Estimated Glomerular Filt Rate > 60; Lipase 45 U/L (8-78); Magnesium 1.9 mg/dL (1.6-2.6); Potassium 3.5 mmol/L (3.3-5.1); Sodium 140 mmol/L (135-145); Total Protein 7.2 g/dL (6.5-8.0)
--- OUTSIDE RECORDS SUMMARY | 2024-11-26 02:13 | XMS_ITS | Clinical Summary ---
Author Organization [facility] Address [address] [place] [address] Phone Care Team Providers Care Caregiver Assisted Living Name Role Phone Guerita Perez MD Primary Care Prov ider Allergies Active Allergy Reactions Criticality Noted Date Comments Benzonatate Hives,Rash 06/09/2024 Lovastatin Rash 04/18/2023 Oxycodone High 04/27/2023 Other Reaction(s): LIPS SWELLED Penicillin G Hives 11/12/2012 Other Reaction(s): Hives/Urticaria Pravastatin Headache 04/27/2023 Medications blood glucose control high,low solution Use to [...] blood sugar 1 time daily 023 Active blood sugar diagnostic (FreeStyle Lite Strips) test strip USE DIRECTED TO TEST BLOOD SUGAR EVERY DAY 024 Active betamethasone dipropionate (DIPROSONE) 0.05 % cream APPLY TO THE AFFECTED AREA(S) ON RIGHT THIGH TWICE DAILY FOR 2 WEEKS, STOP FOR 1 WEEK. REPEAT NEEDED FOR FLARE. 024 Active albuterol 2.5 mg /3 mL (0.083 %) nebulizer solutionIndicat ions:Moderate persistent asthma without complication Take 3 mL (2.5 mg total) by nebulization every 4 (four) hours if needed for shortness of breath or wheezing. 300 mL 1 Active empagliflozin (Jardiance) 10 mg tablet Take 1 tablet (10 mg total) by mouth 1 (one) time each day. 90 tablet 3 025 2025 Active albuterol HFA (PROAIR HFA ; PROVENTIL HFA ; VENTOLIN HFA) 90 mcg/actuation inhaler Inhale 2 puffs by mouth 4 (four) times a day. 6.7 g Active alendronate (FOSAMAX) 70 mg tablet take 1 tablet by mouth once a week with 6 to 8 oz of water 30 min before first food of day. do not lie down for 30 minutes 12 tablet 1 Active zafirlukast (ACCOLATE) 20 mg tabletIndicatio ns:Moderate persistent asthma without complication Take 1 tablet (20 mg total) by mouth 2 (two) times a day. 180 tablet 1 Active Advair HFA 230-21 mcg/actuation inhalerIndicati ons:Moderate persistent asthma without complication Inhale 2 puffs by mouth 2 (two) times a day. Rinse mouth with water after use to reduce aftertaste and incidence of candidiasis. Do not swallow. 1 each 5 025 2024 Active ezetimibe (ZETIA) 10 mg tablet TAKE 1 TABLET BY MOUTH EVERY DAY 90 tablet 1 Active hydroCHLOROthia zide (MICROZIDE) 12.5 mg capsuleIndicati ons:HTN (hypertension), benign Take 1 capsule (12.5 mg total) by mouth 1 (one) time each day in the morning. 90 each 3 025 2025 Active lisinopriL (PRINIVIL,ZESTR IL) 10 mg tabletIndicatio ns:HTN (hypertension), benign Take 1 tablet (10 mg total) by mouth 1 (one) time each day. 90 each 3 025 2025 Active metFORMIN XR (GLUCOPHAGE-XR) 500 mg 24 hr tabletIndicatio ns:Controlled type 2 diabetes mellitus without complication, without long-term current use of insulin ([facility] V24, [facility] V28) Take 1 tablet (500 mg total) by mouth 2 (two) times a day. Do not crush, chew, or split. 180 each 3 025 2025 Active cyanocobalamin (VITAMIN B-12) 1,000 mcg tablet Take 1 tablet (1,000 mcg total) by mouth 1 (one) time each day. 90 each 3 025 2025 Active metFORMIN XR (GLUCOPHAGE-XR) 500 mg 24 hr tablet Take 1 tablet (500 mg total) by mouth 2 (two) times a day. Do not crush, chew, or split. 180 tablet 1 025 2024 Discontinued(R eorder) ezetimibe (ZETIA) 10 mg tablet Take 1 tablet (10 mg total) by mouth 1 (one) time each day. 90 tablet 1 025 2024 Discontinued lisinopriL (PRINIVIL,ZESTR IL) 10 mg tablet Take 1 tablet (10 mg total) by mouth 1 (one) time each day. 90 tablet 1 025 2024 Discontinued(R eorder) Advair HFA 230-21 mcg/actuation inhalerIndicati ons:Moderate persistent asthma without complication Inhale 2 puffs by mouth 2 (two) times a day. Rinse mouth with water after use to reduce aftertaste and incidence of candidiasis. Do not swallow. 1 each 5 025 2024 Discontinued(R eorder) zafirlukast (ACCOLATE) 20 mg tabletIndicatio ns:Moderate persistent asthma without complication TAKE 1 TABLET BY MOUTH TWICE DAILY 60 tablet 1 025 2024 Discontinued(R eorder) hydroCHLOROthia zide (MICROZIDE) 12.5 mg capsule TAKE 1 CAPSULE BY MOUTH EVERY MORNING 45 capsule 1 025 2024 Discontinued(R eorder) predniSONE (DELTASONE) 20 mg tablet Take 60 mg PO daily for 3 days, then take 40 mg PO daily for 3 days, then 20 mg PO daily for 3 days, then stop 18 tablet 025 2024 Discontinued(T herapy completed) tiotropium (Spiriva Respimat) 1.25 mcg/actuation inhalation sprayIndication s:maintenance therapy for asthma,Please do PA and formulary exeption since patient had increased cough with Incuse. Inhale 2 puffs by mouth 1 (one) time each day. 1 each 2 025 2024 Discontinued Active Problems Problem Noted Date Diagnosed Date [...] should be classified as having osteoporosis. [facility] Department of Internal Medicine recommends using [...] Mycolog and yeast culture sent. Will follow [facility] guidelines. Uterine leiomyoma 07/11/2022 Overview (07/04/2023): Last [...] Overview (07/04/2023): IMO update Assessment & Plan (11/18/2024 9:28 AM EDT): Given the patients cardiac risk profile, the patient requires an LDL cholesterol of less than 70. Continue Zetia. I have instructed the patient on the principles of a low cholesterol diet and the importance of regular exercise. Assessment & Plan (07/16/2024 10:44 AM EST): Given the patients cardiac risk profile, the patient requires an LDL cholesterol of less than 70, target. Continue Zetia. I have instructed the patient on the principles of a low cholesterol diet and the importance of regular exercise. Assessment & Plan (03/20/2024 7:47 PM EST): [...] HTN (hypertension), benign 11/12/2012 Assessment & Plan (11/18/2024 9:28 AM EDT): The patient's antihypertensive regimen is based on their underlying medical issues. At the time of this visit, the blood pressure is well controlled on lisinopril. The patient is instructed to follow a low sodium diet and to follow up in 6 months. Orders: hydroCHLOROthiazide (MICROZIDE) 12.5 mg capsule; Take 1 capsule (12.5 mg total) by mouth 1 (one) time each day in the morning. lisinopriL (PRINIVIL,ZESTRIL) 10 mg tablet; Take 1 tablet (10 mg total) by mouth 1 (one) time each day. Comprehensive metabolic panel; Future Hemoglobin A1c; Future Lipid panel with reflex to direct LDL; Future Microalbumin creatinine urine ratio; Future Assessment & Plan (07/16/2024 10:44 AM EST): The patient's antihypertensive regimen is based on their underlying medical issues. At the time of this visit, the blood pressure is well controlled on lisinopril. The patient is instructed to follow a low sodium diet and to follow up in 4 months. Assessment & Plan (03/20/2024 7:47 PM EST): [...] direct LDL; Future Diabetes mellitus type 2, co ntrolled ([facility] V24, [facility] V28) 11/12/2012 Assessment & Plan (11/18/2024 9:28 AM EDT): Good control of diabetes. A1C: 7.1. Patient will continue with yearly Podiatric and Ophthomologic evaluations. Will continue Metformin, Jardiance, Angiotensin Converting Enzyme Inhibitor for renal protection. Continue metformin, and Jardiance. We will check a hemoglobin A1c before her next visit. Patient will follow up in 6 months Orders: metFORMIN XR (GLUCOPHAGE-XR) 500 mg 24 hr tablet; Take 1 tablet (500 mg total) by mouth 2 (two) times a day. Do not crush, chew, or split. Comprehensive metabolic panel; Future Hemoglobin A1c; Future Lipid panel with reflex to direct LDL; Future Microalbumin creatinine urine ratio; Future Assessment & Plan (07/16/2024 10:44 AM EST): Good control of diabetes. Patient will continue with yearly Podiatric and Ophthomologic evaluations.Will continue Angiotensin Converting Enzyme Inhibitor for renal protection. Continue metformin, and Jardiance. We will check a hemoglobin A1c before her next visit. Patient will follow up in 4 months Orders: Hemoglobin A1c; Future Assessment & Plan (03/20/2024 7:47 PM EST): [...] Encounters Date Type Department Care Team Description 11/19/2024 Telephone Adult Medicine [address] [phone] Guerita Hough MD Results 11/18/2024 8:45 AM EDT Office Visit [address] [phone] Guerita Hough MD Controlled type 2 diabetes mellitus without complication, without long-term current use of insulin ([facility] V24, [facility] V28) (Primary Dx); HTN (hypertension), benign; Hyperlipidemia with target LDL less than 100; Fatigue, unspecified type; Palpitations 11/07/2024 9:45 AM EDT Office Visit Pulmongy [facility] [address] [address] Nettie Garcia NP Seasonal allergic rhinitis, unspecified trigger (Primary Dx); Moderate persistent asthma without complication 10/13/2024 Telephone Pulmonolgy [facility] [address] [phone] Nettie Garcia NP Accomodation forms 09/29/2024 Telephone Pulmonolgy [facility] [address] [phone] Nettie Garcia NP Medication Problem 09/25/2024 9:20 AM EDT [facility] [address] [phone] Nettie Garcia NP Moderate persistent asthma without complication (Primary Dx); Seasonal allergic rhinitis, unspecified trigger; Chronic cough from Last 3 Months Immunizations Name Administration [...] History Date Comments Hypertension Asthma Diabetes mellitus ([facility] V24, [facility] V28) Arthritis Chronic bronchitis ([facility] [place] V24, [facility] V28) Social History Tobacco Use Types Packs/Day Years [...] Sign Reading Time Taken Comments Blood Pressure 126/70 11/18/2024 8:37 AM EDT Pulse 76 11/18/2024 8:37 AM EDT Temperature 36.4 C (97.5 F) 11/18/2024 8:37 AM EDT Respiratory Rate 16 11/18/2024 8:37 AM EDT Oxygen Saturation 99% 11/07/2024 9:34 AM EDT Inhaled Oxygen Concentration - - Weight 57.2 kg (126 lb) 11/18/2024 8:37 AM EDT Height 157.5 cm (5' 2 ) 11/07/2024 9:34 AM EDT Body Mass Index 23.05 11/07/2024 9:34 AM EDT Plan of Treatment Upcoming Encounters Date Type Department Care Team (Late st Contact Info) Description 03/20/2025 1:30 PM EST Appointment Radiology Department - [facility] [address] [place], [place] [phone] 05/06/2025 9:45 AM EST Office Visit Pulmonolgy [facility] 175 [facility] [address] [place] [address] Nettie Garcia, TING 175 [facility] [address] [place] [address] 05/22/2025 9:00 AM EST Office Visit Adult Medicine [facility] [address] [place] [address] Guerita Perez MD [address] [place], [place] Health Maintenance Due Date Last Done Comments Zoster Vaccines (1 of 2) 02/16/2000 RSV Immunization Adult Patients (1 - Risk 60-74 years 1-dose series) 2010 COVID-19 Vaccine ( season) 2024 07/06/2021, 06/09/2020, 05/19/2020 Diabetes: Annual Retina Eye Exam 04/12/2024 04/12/2023 Osteoporosis Screening (Bone Density Screening) 06/22/2024 06/22/2023, 10/27/2021 Medicare Annual Wellness Visit 11/12/2024 11/13/2023 Depression Screening 03/18/2025 03/18/2024, 11/13/2023, 12/11/2022 Diabetes: Annual Foot Exam 03/18/2025 03/18/2024, Falls Risk Assessment 03/18/2025 03/18/2024, 023 Social Influencers of Health Screening 03/18/2025 03/18/2024 Diabetes: Blood Sugar Control Test (HGBA1C) 03/28/2025 09/25/2024, 07/11/2024, 12/26/2023, Additional history exists Diabetes: Annual Urine Albumin-Creatinine Ratio (uACR) 07/11/2025 07/11/2024, 12/26/2023, 10/06/2022 Diabetes: Annual GFR (Glomerular Filtration Rate) 07/11/2025 07/11/2024, 02/27/2024, 11/09/2023 Hypertension/CHF/CAD Annual BMP Blood Test 07/11/2025 07/11/2024, 02/27/2024, 11/09/2023 Breast Cancer Screening 02/26/2026 02/27/20, 02/27/2024, 02/23/2023, Additional history exists Cholesterol Screening (Lipid Panel) 07/11/2029 07/11/2024, 12/26/2023, 04/10/2023 Colorectal Cancer Screening: Colonoscopy 10/24/2033 10/25/2023 DTaP,Tdap,and Td Vaccines Discontinued 11/12/2012 Hepatitis C Screening Completed 02/01/2013 Pneumococcal Vaccine: [...] age to complete this topic Meningococcal B Vaccine Aged Out No l onger eligible based on patient's age to complete this topic RSV Immunization Patients Under 20 months Aged Out No longer eligible based on patient's age to complete this topic Varicella Vaccines Aged Out No longer eligible based on patient's age to complete this topic Procedures Procedure Name Priority Date/Time Associated Diagnosis Comments VITAMIN B12 Routine 11/18/2024 9:45 AM EDT Fatigue, unspecified type VITAMIN D 25 HYDROXY Routine 11/18/2024 9:45 AM EDT Fatigue, unspecified type ECG 12-LEAD TRACING ONLY Routine 11/18/2024 9:27 AM EDT Palpitations INTERFERON GAMMA INTERPRETATION Routine 09/25/2024 10:10 AM EDT Moderate persistent asthma Seasonal allergic rhinitis INTERFERON GAMMA ANTIGEN 2 Routine 09/25/2024 10:10 AM EDT Moderate persistent asthma Seasonal allergic rhinitis INTERFERON GAMMA ANTIGEN 1 Routine 09/25/2024 10:10 AM EDT Moderate persistent asthma Seasonal allergic rhinitis INTERFERON GAMMA MITOGEN Routine 09/25/2024 10:10 AM EDT Moderate persistent asthma Seasonal allergic rhinitis INTERFERON GAMMA NIL Routine 09/25/2024 10:10 AM EDT Moderate persistent asthma Seasonal allergic rhinitis CBC WITH AUTO DIFFERENTIAL Routine 09/25/2024 10:10 AM EDT Moderate persistent asthma without complication Seasonal allergic rhinitis, unspecified trigger Chronic cough INTERFERON GAMMA FOR TB, QUALITATIVE Routine 09/25/2024 10:10 AM EDT Moderate persistent asthma Seasonal allergic rhinitis CBC AND DIFFERENTIAL Routine 09/25/2024 10:10 AM EDT Moderate persistent asthma without complication Seasonal allergic rhinitis, unspecified trigger Chronic cough ALLERGEN RESPIRATORY PROFILE AREA 1 CT,[place],RI,V T IGE Routine 09/25/2024 10:10 AM EDT Moderate persistent asthma without complication Seasonal allergic rhinitis, unspecified trigger Chronic cough [id number] Routine 09/25/2024 1 0:10 AM EDT Moderate persistent asthma without complication Seasonal allergic rhinitis, unspecified trigger Chronic cough HEMOGLOBIN A1C Routine 09/25/2024 10:10 AM EDT Controlled type 2 diabetes mellitus without complication, without long-term current use of insulin ([facility] V24, [facility] V28) MICROALBUMIN CREATININE URINE RATIO Routine 07/11/2024 8:30 AM EST Controlled type 2 diabetes mellitus without complication, without long-term current use of insulin ([facility] V24, [facility] V28) HTN (hypertension), benign Hyperlipidemia associated with type 2 diabetes mellitus (CMS/HCC V24, CMS/HCC V28) COMPREHENSIVE METABOLIC PANEL Routine 07/11/2024 8:30 AM EST Controlled type 2 diabetes mellitus without complication, without long-term current use of insulin (CMS/HCC V24, CMS/HCC V28) HTN (hypertension), benign Hyperlipidemia associated with type 2 diabetes mellitus (CMS/HCC V24, CMS/HCC V28) LIPID PANEL WITH REFLEX TO DIRECT LDL Routine 07/11/2024 8:30 AM EST Controlled type 2 diabetes mellitus without complication, without long-term current use of insulin (CMS/HCC V24, CMS/HCC V28) HTN (hypertension), benign Hyperlipidemia associated with type 2 diabetes mellitus (CMS/HCC V24, CMS/HCC V28) SCREENING MAMMOGRAPHY BI 2-VIEW BREAST INC CAD Routine 02/27/2024 2:50 PM EDT Encounter for screening mammogram for malignant neoplasm of breast DXA BONE DENSITY STUDY 1+ SITS AXIAL SKEL Routine 06/22/2023 9:39 AM EST Asymptomatic menopausal state HEPATITIS C SCREENING Routine 02/01/2013 from Last 3 Months or Most Recently Relevant to Health Maintenance Results * Vitamin D 25 hydroxy (11/18/2024 9:45 AM EDT) Vit D, 25-Hydroxy 45.3 30.0 - 80.0 ng/mL LAB CHEMISTRY METHOD 11/18/2024 2:49 PM EDT [facility] Blood Venous blood specimen / Unknown Venipuncture / Unknown 11/18/2024 9:45 AM EDT 11/18/2024 9:45 AM EDT us Guerita Perez MD LAB BLOOD ORDERABL ES Final Result [facility]) [facility] [address] [place] [address], [place] [phone] * (ABNORMAL) Vitamin B12 (11/18/2024 9:45 AM EDT) [facility] Vitamin B-12 176(L) 250 - 900 pcg/mL LAB CHEMISTRY METHOD 11/18/2024 2:03 PM EDT [facility] Blood Venous blood specimen / Unknown Venipuncture / Unknown 11/18/2024 9:45 AM EDT 11/18/2024 9:45 AM EDT Guerita Perez MD LAB BLOOD ORDERABL ES Final Result Performing Organization Address [facility]/ZIP Co de Phone Number [facility] [address] [place] [address], [place] [phone] * ECG 12 lead Tracing Only (11/18/2024 9:27 AM EDT) Guerita Perez MD ECG ORDERABLES Fi nal Result * Interferon gamma interpretation (09/25/2024 10:10 AM EDT) [facility] Quantiferon Plus Interpretation Negative Negative LAB CHEMISTRY METHOD 09/26/2024 9:12 AM EDT [facility] Blood Venous blood specimen / Unknown Venipuncture / Unknown 09/25/2024 10:10 AM EDT 09/25/2024 10:10 AM EDT Nettie Garcia [employer] LAB BLOOD ORDERABLES Fi nal Result [facility] [address] [place] [address], [place] [phone] * Interferon gamma antigen 2 (09/25/2024 10:10 AM EDT) Blood Venous blood specimen / Unknown Venipuncture / Unknown 09/25/2024 10:10 AM EDT 09/25/2024 10:10 AM EDT us Sheffield Radha [employer] LAB BLOOD ORDERABLES Fi nal Result Performing Organization Address City/[facility]/ZIP Co de Phone Number [facility] [address] [place] [address], [place] [phone] * Inteferon gamma antigen 1 (09/25/2024 10:10 AM EDT) Blood Venous blood specimen / Unknown Venipuncture / Unknown 09/25/2024 10:10 AM EDT 09/25/2024 10:10 AM EDT us Sheffield Radha [employer] LAB BLOOD ORDERABLES Fi nal Result Performing Organization Address [facility] Co de Phone Number [facility] [address] [place] [address], [place] [phone] * Interferon gamma mitogen (09/25/2024 10:10 AM EDT) Blood Venous blood specimen / Unknown Venipuncture / Unknown 09/25/2024 10:10 AM EDT 09/25/2024 10:10 AM EDT us Sheffield Radha [employer] LAB BLOOD ORDERABLES Fi nal Result Performing Organization Address City/[facility] Co de Phone Number [facility] [address] [place] [address], [place] [phone] * Interferon gamma NIL (09/25/2024 10:10 AM EDT) Blood Venous blood specimen / Unknown Venipuncture / Unknown 09/25/2024 10:10 AM EDT 09/25/2024 10:10 AM EDT us Nettie Radha [employer] LAB BLOOD ORDERABLES Fi nal Result Performing Organization Address City/[facility]/ZIP Co de Phone Number [facility] [address] [place] [address], [place] [phone] * (ABNORMAL) Allergen respiratory profile area 1 CT,[place],PA,RI,VT IgE (09/25/2024 10:10 AM EDT) Alternaria alternata, IgE <0.10 <0.10 kU/L 09/30/2024 10:43 AM EDT [facility] Alternaria alternata Class CLASS 0 09/30/2024 10:43 AM EDT [facility] Aspergillus fumigatus, IgE 1.19(H) <0.10 kU/L 09/30/2024 10:43 AM EDT [facility] Aspergillus fumigatus Class CLASS 2 09/30/2024 10:43 AM EDT [facility] Berm[place] Grass, IgE <0.10 <0.10 kU/L 09/30/2024 10:43 AM EDT [facility] [place] Grass Class CLASS 0 09/30 10:43 AM EDT [facility] Common Silver Birch, IgE <0.10 <0.10 kU/L 09/30/2024 10:43 AM EDT [facility] Common Silver Birch Class CLASS 0 09/30/2024 10:43 AM EDT [facility] Cat Dander, IgE 11.30(H) <0.10 kU/L 09/30/2024 10:43 AM EDT [facility] Cat Dander Class CLASS 3 10/01/19 10:43 AM EDT [facility] Cladosporium herbarum, IgE <0.10 <0.10 kU/L 09/30/2024 10:43 AM EDT [facility] Cladosporium herbarum Class CLASS 0 09/30/2024 10:43 AM EDT [facility] Cockroach, Haitian, IgE <0.10 <0.10 kU/L 09/30/2024 10:43 AM EDT [facility] Cockroach, Haitian Class CLASS 0 09/30/2024 10:43 AM EDT [facility] [place], IgE <0.10 <0.10 kU/L 09/30/2024 10:43 AM EDT [facility] [place] Class CLASS 0 10/01/19 10:43 AM EDT [facility] Dermatophagoides farinae, IgE <0.10 <0.10 kU/L 09/30/2024 10:43 AM EDT [facility] Dermatophagoides farinae Class CLASS 0 09/30/2024 10:43 AM EDT [facility] Dermatophagoides pteronyssinus, IgE <0.10 <0.10 kU/L 09/30/2024 10:43 AM EDT [facility] Dermatophagoides pteronyssinus Class CLASS 0 09/30/2024 10:43 AM EDT [facility] Dog Dander, IgE 1.03(H) <0.10 kU/L 09/30/2024 10:43 AM EDT [facility] Dog Dander Class CLASS 2 10/01/19 10:43 AM EDT [facility] Elm, IgE <0.10 <0.10 kU/L 09/30/2024 10:43 AM EDT [facility] Elm Class CLASS 0 09/30/2024 10:43 AM EDT [facility] Maple ([place]), IgE <0.10 <0.10 kU/L 09/30/2024 10:43 AM EDT [facility] Maple ([place]) Class CLASS 0 09/30/2024 10:43 AM EDT [facility] Maple Naches Syc., Rueda Plane, IgE <0.10 <0.10 kU/L 09/30/2024 10:43 AM EDT [facility] Maple Naches Syc, Rueda Plane Class CLASS 0 09/30/2024 10:43 AM EDT [facility] Mountain Juniper, IgE <0.10 <0.10 kU/L 09/30/2024 10:43 AM EDT [facility] Mountain Juniper Class CLASS 0 09/30/2024 10:43 AM EDT [facility] Mouse Urine Proteins, IgE <0.10 <0.10 kU/L 09/30/2024 10:43 AM EDT [facility] Mouse Urine Proteins Class CLASS 0 09/30/2024 10:43 AM EDT [facility] Mugwort (sagebrush), IgE <0.10 <0.10 kU/L 09/30/2024 10:43 AM EDT [facility] Mugwort (sagebrush) Class CLASS 0 09/30/2024 10:43 AM EDT [facility] [place], IgE <0.10 <0.10 kU/L 09/30/2024 10:43 AM EDT [facility] [place] Class CLASS 0 09/30/2024 10:43 AM EDT [facility] [place], IgE <0.10 <0.10 kU/L 09/30/2024 10:43 AM EDT [facility] [place] Class CLASS 0 09/30/2024 10:43 AM EDT [facility] Penicillium chrysogenum, IgE <0.10 <0.10 kU/L 09/30/2024 10:43 AM EDT [facility] Penicillium chrysogenum Class CLASS 0 09/30/2024 10:43 AM EDT [facility] Common Pigweed, IgE <0.10 <0.10 kU/L 09/30/2024 10:43 AM EDT [facility] Common Pigweed Class CLASS 0 09/12 10:43 AM EDT [facility] Common Ragweed (short), IgE 8.34(H) <0.10 kU/L 09/30/2024 10:43 AM EDT [facility] Common Ragweed (short) Class CLASS 3 09/30/2024 10:43 AM EDT [facility] Sheep [place], IgE <0.10 <0.10 kU/L 09/30/2024 10:43 AM EDT [facility] Sheep [place] Class CLASS 0 2024 10:43 AM EDT [facility] Luiz Grass, IgE <0.10 <0.10 kU/L 09/30/2024 10:43 AM EDT [facility] Luiz Grass Class CLASS 0 09/30 10:43 AM EDT [facility] Cold [place] Tree, IgE <0.10 <0.10 kU/L 09/30/2024 10:43 AM EDT [facility] Cold [place] Tree Class CLASS 0 025 10:43 AM EDT [facility] White Chemo, IgE <0.10 <0.10 kU/L 09/30/2024 10:43 AM EDT [facility] White Chemo Class CLASS 0 10:43 AM EDT [facility] IgE 244.0(H) <114.0 IU/mL 09/30/2024 10:43 AM EDT [facility] Allergy Interpretation See Below 09/30/2024 10:43 AM EDT [facility] Comment: Level of Allergen CLASS kU/L Specific IgE Antibody ----- 0 <0.10 Undetectable 0/1 0.10 - 0.34 Very Low Level 1 0.35 - 0.69 Low Level 2 0.70 - 3.49 Moderate Level 3 3.50 - 17.4 High Level 4 17.5 - 49.9 Very High Level 5 50.0 - 100.0 Very High Level 6 >100.0 Very High Level Test performed at [facility], [address], [place] [address] Mary Anne Ferrari MD, PhD - Director Of Graduate Admissions Blood Venous blood specimen / Unknown Venipuncture / Unknown 09/25/2024 10:10 AM EDT 09/25/2024 10:10 AM EDT us Nettie Garcia [employer] LAB BLOOD ORDERABLES Fi nal Result [facility] [address] [place] [address] * (ABNORMAL) CBC auto differential (09/25/2024 10:10 AM EDT) Pathologist [facility] [place] WBC 5.9 4.8 - 10.8 K/mcL LAB HEMETOLOGY METHOD 09/25/2024 2:15 PM EDT [facility] RBC 4.50 3.80 - 4.80 M/mcL LAB HEMETOLOGY METHOD 09/25/2024 2:15 PM EDT [facility] Hemoglobin 12.8 11.5 - 16.0 g/dL LAB HEMETOLOGY METHOD 09/25/2024 2:15 PM EDT [facility] Hematocrit 40.1 35.0 - 47.0 % LAB HEMETOLOGY METHOD 09/25/2024 2:15 PM EDT [facility] MCV 89.3 79.0 - 98.0 FL LAB HEMETOLOGY METHOD 09/25/2024 2:15 PM EDT [facility] MCH 28.5 27.0 - 32.0 pcg LAB HEMETOLOGY METHOD 09/25/2024 2:15 PM EDT [facility] MCHC 31.9(L) 32.0 - 37.0 g/dL LAB HEMETOLOGY METHOD 09/25/2024 2:15 PM EDT [facility] RDW 14.4 11.0 - 15.0 % LAB HEMETOLOGY METHOD 09/25/2024 2:15 PM EDT [facility] Platelets 289 130 - 400 K/mcL LAB HEMETOLOGY METHOD 09/25/2024 2:15 PM EDT [facility] MPV 10.9 7.0 - 11.0 FL LAB HEMETOLOGY METHOD 09/25/2024 2:15 PM EDT [facility] NRBC 0.0 <1.0 % LAB HEMETOLOGY METHOD 09/25/2024 2:15 PM EDT [facility] NRBC Absolute 0.00 <0.10 K/mcL LAB HEMETOLOGY METHOD 09/25/2024 2:15 PM EDT [facility] Neutrophils Relative 47.4 % LAB [facility]OLOG[facility] Lymphocytes Relative 38.3 % LAB HEMETOLOGY METHOD 09/25/2024 2:15 PM EDT [facility] Monocytes Relative 9.7 % LAB HEMETOLOGY METHOD 09/25/2024 2:15 PM EDT [facility] Eosinophils Relative 3.6 % LAB HEMETOLOGY METHOD 09/25/2024 2:15 PM EDT [facility] Basophils Relative 0.8 % LAB HEMETOLOGY METHOD 09/25/2024 2:15 PM EDT [facility] Immature Granulocytes Relative 0.2 % LAB HEMETOLOGY METHOD 09/25/2024 2:15 PM EDT [facility] Neutrophils Absolute 2.80 1.50 - 7.00 K/mcL LAB HEMETOLOGY METHOD 09/25/2024 2:15 PM EDT [facility] Lymphocytes Absolute 2.26 1.00 - 5.00 K/mcL LAB HEMETOLOGY METHOD 09/25/2024 2:15 PM EDT [facility] Monocytes Absolute 0.57 0.20 - 1.00 K/mcL LAB HEMETOLOGY METHOD 09/25/2024 2:15 PM EDT [facility] Eosinophils Absolute 0.21 0.00 - 0.50 K/[facility] LAB HEMETOLOGY METHOD 09/25/2024 2:15 PM EDT [facility] Basophils Absolute 0.05 0.00 - 0.20 K/mcL LAB HEMETOLOGY METHOD 09/25/2024 2:15 PM EDT [facility] Immature Granulocytes Absolute 0.01 0.00 - 0.03 K/mcL LAB HEMETOLOGY METHOD 09/25/2024 2:15 PM EDT [facility] Blood Venous blood specimen / Unknown Venipuncture / Unknown 09/25/2024 10:10 AM EDT 09/25/2024 10:10 AM EDT us Nettie Garcia [employer] LAB BLOOD ORDERABLES Fi nal Result [facility] [address] [place] [address], * [id number] (09/25/2024 10:10 AM EDT) A-1 Antitrypsin 153 90 - 200 mg/dL LAB CHEMISTRY METHOD 09/25/2024 4:39 PM EDT [facility] Blood Venous blood specimen / Unknown Venipuncture / Unknown 09/25/2024 10:10 AM EDT 09/25/2024 10:10 AM EDT us Nettie Garcia NP LAB BLOOD ORDERABLES Fi nal Result Performing Organization Address [facility] Co de Phone Number [facility] [address] [place] [address], [place] [phone] * (ABNORMAL) Hemoglobin A1c (09/25/2024 10:10 AM EDT) Hemoglobin A1C 7.1(H) <6.5 % LAB CHEMISTRY METHOD 09/25/2024 5:17 PM EDT [facility] Mean Bld Glu Estim. 157 mg/dL LAB CHEMISTRY METHOD 09/25/2024 5:17 PM EDT [facility] Blood Venous blood specimen / Unknown Venipuncture / Unknown 09/25/2024 10:10 AM EDT 09/25/2024 10:10 AM EDT us Guerita Perez MD LAB BLOOD ORDERABL ES Final Result Performing Organization Address [facility]/ZIP Co de Phone Number [facility] [address] [place] [address], [place] [phone] * (ABNORMAL) Lipid panel with reflex to direct LDL (07/11/2024 8:30 AM EST) Cholesterol 192 0 - 200 mg/dL LAB CHEMISTRY METHOD 07/11/2024 12:06 PM EST [facility] Triglycerides 204(H) 0 - 150 mg/dL LAB CHEMISTRY METHOD 07/11/2024 12:06 PM EST [facility] HDL 72 >=40 mg/dL LAB CHEMISTRY METHOD 07/11/2024 12:06 PM EST [facility] LDL Calculated 79 0 - 100 mg/dL LAB CHEMISTRY METHOD 07/11/2024 12:06 PM EST [facility] VLDL Cholesterol Vasiliy 40.8 mg/dL LAB CHEMISTRY METHOD 07/11/2024 12:06 PM EST [facility] Non HDL Chol. (LDL+VLDL) 120 <145 mg/dL LAB CHEMISTRY METHOD 07/11/2024 12:06 PM EST [facility] Chol/HDL Ratio 2.7 0.0 - 4.4 LAB CHEMISTRY METHOD 07/11/2024 12:06 PM EST [facility] Blood Venous blood specimen / Unknown Venipuncture / Unknown 07/11/2024 8:30 AM EST 07/11/2024 8:30 AM EST Guerita Perze MD LAB BLOOD ORDERABL ES Final Result Performing Organization Address [facility]/ZIP Co de Phone Number [facility] [address] [place] [address], * Microalbumin creatinine urine ratio (07/11/2024 8:30 AM EST) Creatinine, Urine 66.0 mg/dL LAB CHEMISTRY METHOD 07/11/2024 12:09 PM [facility] Microalb, Ur 13.7 0.0 - 29.0 mg/L LAB CHEMISTRY METHOD 07/11/2024 12:09 PM [facility] Microalb/Creat Ratio 21 <30 mg/g creat LAB CHEMISTRY METHOD 07/11/2024 12:09 PM [facility] Urine Urine specimen from urethra / Unknown Non-blood Collection / Unknown 07/11/2024 8:30 AM EST 07/11/2024 8:30 AM EST Guerita Perez MD LAB URINE ORDERABL ES Final Result Performing Organization Address [facility]/ZIP Co de Phone Number [facility] [address] [place] [address], [place] [phone] * (ABNORMAL) Comprehensive metabolic panel (07/11/2024 8:30 AM EST) Sodium 137 133 - 145 mmol/L LAB CHEMISTRY METHOD 07/11/2024 12:06 PM [facility] Potassium 3.6 3.5 - 5.5 mmol/L LAB CHEMISTRY METHOD 07/11/2024 12:06 PM [facility] Chloride 102 96 - 110 mmol/L LAB CHEMISTRY METHOD 07/11/2024 12:06 PM [facility] CO2 30 21 - 32 mmol/L LAB CHEMISTRY METHOD 07/11/2024 12:06 PM [facility] Anion Gap 5 3 - 11 LAB CHEMISTRY METHOD 07/11/2024 12:06 PM [facility] Glucose 122(H) 70 - 100 mg/dL LAB CHEMISTRY METHOD 07/11/2024 12:06 PM [facility] BUN 18 5 - 25 mg/dL LAB CHEMISTRY METHOD 07/11/2024 12:06 PM [facility] Creatinine 0.63 0.50 - 1.10 mg/dL LAB CHEMISTRY METHOD 07/11/2024 12:06 PM [facility] eGFR 93 >=60 mL/min/1. 73m2 LAB CHEMISTRY METHOD 07/11/2024 12:06 PM [facility] Comment:Calculation based on the Chronic Kidney Disease Epidemiology Collaboration (CKD-EPI) equation refit without adjustment for race. BUN/Creatinine Ratio 28.6 LAB CHEMISTRY METHOD 07/11/2024 12:06 PM [facility] Calcium 9.7 8.5 - 10.5 mg/dL LAB CHEMISTRY METHOD 07/11/2024 12:06 PM [facility] AST (SGOT) 7(L) 10 - 42 unit/L LAB CHEMISTRY METHOD 07/11/2024 12:06 PM [facility] ALT (SGPT) 17 10 - 60 unit/L LAB CHEMISTRY METHOD 07/11/2024 12:06 PM [facility] Alkaline Phosphatase 61 42 - 121 unit/L LAB CHEMISTRY METHOD 07/11/2024 12:06 PM [facility] Total Protein 7.2 6.0 - 8.0 g/dL LAB CHEMISTRY METHOD 07/11/2024 12:06 PM [facility] Albumin 4.1 3.2 - 5.0 g/dL LAB CHEMISTRY METHOD 07/11/2024 12:06 PM [facility] Total Bilirubin 0.5 0.0 - 1.4 mg/dL LAB CHEMISTRY METHOD 07/11/2024 12:06 PM [facility] Blood Venous blood specimen / Unknown Venipuncture / Unknown 07/11/2024 8:30 AM EST 07/11/2024 8:30 AM EST us Guerita Perez MD LAB BLOOD ORDERABL ES Final Result [facility] [address] [place] [address], * SCREENING MAMMOGRAPHY BI 2-VIEW BREAST INC [...] Breast cancer risk category Low (<15%) Location: [facility], [address] [place] [address], [id number], [phone] Procedure Note Juan Carlos Beck MD - [...] Breast cancer risk category Low (<15%) Location: [facility], [address] [place] [address], [address], [phone] Guerita Perez MD IMG XR PROCEDURES Final Result * DXA BONE DENSITY STUDY 1+ SITS AXIAL SKEL (06/22/2023 9:39 AM EST) Anatomical Region Laterality Modality Bone Densitometr y 04/16/2023 12:5 4 PM EST Narrative 06/25/2023 4:35 PM EST BONE DENSITY Lumbar Spine T-score is -2.9 [...] should be classified as having osteoporosis. [facility] Department of Internal Medicine recommends using [...] Sexton should beclassified as having osteoporosis. [facility] Department of Internal Medicine recommendsusing National [...] of fracture risk by FRAX. Abril GAGNON IMElly DXA PROCEDURES Final Result * Hepatitis C Screening (02/01/2013) Hepatitis C Screening Negative Historical Provider HEALTH MAINTENANCE Final Result from Last 3 Months or Most Recently Relevant to Health Maintenance Insurance [employer] Member Subscriber Plan / Payer (Ef fective 2023-Present) Name:Bing Sexton Relation to Subscriber:Self Name:Bing Sexton Payer ID:[id number] Group ID:[id number] Type:Not on file Address: [facility] [address] [id number] Advance Directives * Full Code - Default [...] currently active code status orders. Care Teams Caregiver Assisted Living Relationship Specialty Start Date End Date Guerita Perez MD [address] [place] [id number] PCP - General Internal Medicine 03/19/24
--- OUTSIDE RECORDS SUMMARY | 2024-11-26 02:13 | XMS_ITS | Patient Health Record ---
Author Organization [facility] Address [address] [place] [id number] Care Team Providers Care Lock Operator Name Role Phone Florian Andrade Unavailable [phone] Reason For Referral No Information Plan Of Treatment No Information
[2024-11-26] MEDS: Lactated Ringers 1,000 ML 999 ML IV (03:11)
[2024-11-26 04:17] VITALS: BP 148/81; PULSE 88; RESP 14; TEMP 36.8; O2SAT 99
--- NOTE | 2024-11-26 07:04 | ED.NAVMDI ---
HPI - Nausea/Vomiting/Diarrhea General Chief complaint: Nausea/Vomiting/Diarrhea Stated complaint: vomiting, dry heaving, dizzy, mild ab pain Time Seen by Provider: 11/26/24 02:38 Source: patient Mode of arrival: EMS Limitations: no limitations History of Present Illness ED Provider: Dr. Nicky Zhang HPI Narrative: 74 year old female with history of HTN, HLD, DM presenting with nausea, vomting and dizziness ongoing since about 9pm tonight. Admits she was out drinking with friends today and felt well. Had a hamburger for dinner. Got home and woke with vomiting. Has not been able to tolerate anything by mouth since. No reported abd pain or diarrhea. Denies chest pain or difficulty breathing. No reported fever but has had the chills. No hematemesis. No one else is ill after eating the same foods. No recent travel or antibiotic use. Related Data Home Medications ?Medication ?Instructions ?Recorded ?Confirmed albuterol sulfate 2.5 mg/3 mL mg inhalation Q4H PRN wheezing 05/19/21 (0.083 %) solution for nebulization azelastine 137 mcg (0.1 %) nasal 1 - 2 spray intranasal BID 05/19/21 spray ezetimibe 10 mg tablet 10 mg PO DAILY 05/19/21 hydrochlorothiazide 12.5 mg capsule 12.5 mg PO QAM 05/19/21 lisinopril 10 mg tablet 10 mg PO DAILY 05/19/21 metformin 500 mg tablet,extended 1,000 mg PO QAM 05/19/21 release 24 hr alendronate 70 mg tablet 70 mg PO QWEEK 01/16/24 cetirizine 10 mg tablet 10 mg PO DAILY 01/16/24 empagliflozin 10 mg tablet 10 mg PO DAILY 01/16/24 (Jardiance) fluticasone propionate 110 inhalation 01/16/24 mcg/actuation HFA aerosol inhaler hydroxyzine HCl 10 mg tablet 10 mg PO TID PRN 01/16/24 triamcinolone acetonide 0.1 % 1 appl topical BID-TID 01/16/24 topical cream Previous Rx's ?Medication ?Instructions ?Recorded albuterol sulfate 90 mcg/actuation 1 inh inhalation QID PRN shortness 07/01/22 aerosol inhaler (Ventolin HFA) of breath or wheezing #8.5 grams azithromycin 250 mg tablet See Rx Instructions PO .COMPLEX #6 06/23/24 tabs prednisone 50 mg tablet 50 mg PO QAM #5 tabs 06/23/24 dicyclomine 20 mg tablet 20 mg PO TID #10 tabs 11/26/24 ondansetron HCl 4 mg tablet 4 mg PO Q8H #10 tabs 11/26/24 Allergies Allergy/AdvReac Type Severity Reaction Status Date / Time lovastatin AdvReac Rash Verified 11/26/24 01:03 benzonatate Allergy Intermediate Unknown Uncoded 06/23/24 15:12 Penicillin Allergy Unknown rash Uncoded 06/23/24 14:45 Review of Systems Review of Systems: as per HPI, full review of systems performed and negative but for the above mentioned pertinent positives and negatives. [facility] Past Medical History Attestation statement: The following information was validated with the patient. [facility] Narrative: DM, HTN, HLD Source: old records reviewed and nursing notes reviewed Medical History High cholesterol Asthma Diabetes HTN (hypertension) Social History Social History Alcohol intake: current Alcohol intake frequency: a few times a week Alcohol type: beer Patient Tobacco Use Status: Never used Tobacco Smoked in Last 30 Days: No Use of substances other than those prescribed or required for medical reasons: No Advance Directives: Yes Advance Directives Information Provided: Yes Advance Directives on File: No Physical Exam Vital Signs: Vital Signs: Last Vital Signs Temp 98.3 F 11/26/24 07:18 Pulse 88 11/26/24 07:18 Resp 14 11/26/24 07:18 BP 148/81 H 11/26/24 07:18 Pulse Ox 99 11/26/24 07:18 O2 Del Method Room Air 11/26/24 07:18 BMI result Body Mass Index 23.8 GENERAL: Ill-Appearing, appears uncomfortable. SKIN: Normal skin color for ethnicity, warm, dry, no rashes noted. HEENT:? Normocephalic, atraumatic, no stridor, dry mucous membranes, dentition intact, EOMI. NECK: Soft, supple, full ROM, midline structures nontender, no step-offs, no deformities, no lymphadenopathy. CHEST: Heart regular tachycardia, no murmurs, symmetric chest rise and fall. PULMONARY: Clear to auscultation bilaterally, diminished at the bases, no labored breathing, no wheezes/rhales/rhonchi. ABDOMINAL: Soft, nondistended, nontender, hyperactive bowel sounds in all quadrants. : Deferred. MUSCULOSKELETAL: Normal tone, full range of motion, no deformities, no peripheral edema. NEURO: Alert and oriented x3, CN II through XII intact, equal strength and sensation bilateral upper and lower extremities, no focal neurologic deficits.? PSYCHIATRIC: Flat affect, fluid speech, good eye contact and appropriate demeanor. Medications Administered Discontinued Medications Generic Name Dose Route Start Last Admin Trade Name Freq PRN Reason Stop Dose Admin Lactated Ringer's 1,000 mls @ 999 mls/hr 11/26/24 02:38 11/26/24 05:39 Lr IV 11/26/24 03:38 Infused .Q1H1M ONE Infusion Ondansetron HCl 4 mg 11/26/24 02:38 11/26/24 03:08 Ondansetron Hcl 4 Mg/2 Ml Vial IVPUSH 11/26/24 02:39 4 mg ONCE ONE Administration Medical Decision Making Medical Decision Making [facility] Narrative: Patient presents today with a chief complaint of vomiting. Differential diagnosis includes surgical emergency such as obstruction, enteritis, hyperglycemia, acidosis, food or drug ingestion, pancreatitis, CVA, allergic reaction such as anaphylaxis, cannabis hyperemesis syndrome or cyclic vomiting syndrome, among many others.? Patient is not showing signs of acute dehydration or hemodynamic instability.? They are not having associated abdominal pain. ? Broad-based work-up was initiated based on above history and physical exam. Suspect food poisoning/heat exhaustion from drinking earlier in the day in the hot sun. She is better after fluids. Ambulatory in the ED without assistance. Using shared decision making, plan for discharge home to follow-up with primary care and/or specialist.? Patient understands and agrees with plan for discharge.? Discharged home in stable condition. Differential Diagnosis Differential Diagnoses: The differential diagnosis associated with the presentation includes (as above) Admission/Observation Consideration of admission/observation: Escalation of care including admission/observation considered Lab Data MDM Lab Attestation statement: I reviewed the patient's lab results. 11/26/24 01:13 11/26/24 01:13 Labs: Lab Results 11/26/24 Range/Units 01:13 WBC 6.7 (4.8-10.8) X10*3/uL RBC 4.70 (4.20-5.50) X10*6/uL Hgb 13.6 (12.0-16.0) g/dl Hct 39.5 (37.0-47.0) % MCV 84.0 (80.0-98.0) fL MCH 28.9 (27.0-33.0) pg MCHC 34.4 (31.0-35.0) g/dl RDW 14.2 (11.0-16.0) % Plt Count 224 (160-400) X10*3/uL MPV 10.6 (9.4-12.3) fL Immature Gran % (Auto) 0.2 (0.0-0.4) % Neut % (Auto) 62.6 (45-73) % Lymph % (Auto) 27.1 (20-40) % Comal % (Auto) 7.4 (2-11) % Eos % (Auto) 2.1 (0-4) % Baso % (Auto) 0.6 (0-2) % Lymph # (Auto) 1.8 (1.2-4.9) X10*3/uL [place]al # (Auto) 0.5 (0.1-1.2) X10*3/uL Eos # (Auto) 0.1 (0.0-0.4) X10*3/uL Baso # (Auto) 0.0 (0.0-0.2) X10*3/uL Abs Immat Gran (auto) 0.01 (0.00-0.03) X10*3/uL Absolute Neuts (auto) 4.2 (2.0-8.3) x10*3/uL Absolute Nucleated RBC 0.000 (0.0-0.012) X10*3/uL Nucleated RBC % (auto) 0.0 (0.0-0.2) /100WBC Sodium 140 (135-145) mmol/L Potassium 3.5 (3.3-5.1) mmol/L Chloride 102 (96-108) mmol/L Carbon Dioxide 25 (22-29) mmol/L Anion Gap 17 (12-20) BUN 15 (9-16) mg/dL Creatinine 0.69 (0.5-1.4) mg/dL Estim Creat Clear Calc 56.5 Estimated GFR > 60 Random Glucose 180 H (60-115) mg/dL Calcium 9.8 (8.4-10.2) mg/dL Magnesium 1.9 (1.6-2.6) mg/dL Total Bilirubin 0.4 (0.0-1.0) mg/dL AST 19 (5-31) U/L ALT 15 (0-31) U/L Alkaline Phosphatase 60 (39-117) U/L Total Protein 7.2 (6.5-8.0) g/dL Albumin 4.8 (3.5-5.0) g/dL Lipase 45 (8-78) U/L Ethyl Alcohol < 10 mg/dL Independent Historian Clinical information obtained from an independent historian. History obtained from or confirmed by: EMS Prescription Management I considered prescription management with: Pain Medication (bentyl) and Other (antiemetics) Chronic Conditions Patient?s care impacted by: Diabetes and Hypertension Discharge Plan Discharge Clinical Impression: Food poisoning Patient Disposition: Home, Self-Care Instructions: Food Poisoning (ED) Prescriptions: New ondansetron HCl 4 mg tablet 4 mg PO Q8H Qty: 10 0RF dicyclomine 20 mg tablet 20 mg PO TID Qty: 10 0RF No Action ezetimibe 10 mg tablet 10 mg PO DAILY hydrochlorothiazide 12.5 mg capsule 12.5 mg PO QAM lisinopril 10 mg tablet 10 mg PO DAILY metformin 500 mg tablet extended release 24 hr 1,000 mg PO QAM azelastine 137 mcg (0.1 %) aerosol,spray 1 - 2 spray intranasal BID albuterol sulfate 2.5 mg /3 mL (0.083 %) solution for nebulization inhalation Q4H PRN (Reason: wheezing) albuterol sulfate [Ventolin HFA] 90 mcg/actuation HFA aerosol inhaler 1 inh inhalation QID PRN (Reason: shortness of breath or wheezing) Qty: 8.5 1RF alendronate 70 mg tablet 70 mg PO QWEEK Jardiance 10 mg tablet 10 mg PO DAILY fluticasone propionate 110 mcg/actuation HFA aerosol inhaler inhalation triamcinolone acetonide 0.1 % cream 1 appl topical BID-TID cetirizine 10 mg tablet 10 mg PO DAILY hydroxyzine HCl 10 mg tablet 10 mg PO TID PRN azithromycin 250 mg tablet See Rx Instructions PO .COMPLEX Qty: 6 0RF Rx Instructions: For 250 mg dose pack: take 500 mg today (day 1), then 250 mg for 4 days (days 2-5) PO prednisone 50 mg tablet 50 mg PO QAM Qty: 5 0RF Interventions: ED Discharge Assessment Last Done: 11/26/24 07:18 Discharge Date/Time: 11/26/24 07:38 Print Language: Upper Sorbian
[2024-11-26 07:18] VITALS: BP 148/81; PULSE 88; RESP 14; TEMP 36.8; O2SAT 99
== END 2024-11-26 07:38 | disposition home or self-care (01) ==
PROVIDERS: Emergency Provider Emergency Medicine
DX: A05.9 Bacterial foodborne intoxication, unspecified (principal); R11.2 Nausea with vomiting, unspecified; R42 Dizziness and giddiness; R10.2 Pelvic and perineal pain; Z79.899 Other long term (current) drug therapy; Z51.81 Encounter for therapeutic drug level monitoring
CPT/HCPCS: 36415; 80053; 80307; 83690; 83735; 85025; 96361; 96374; 99284; J2405; J7120

== ENCOUNTER 2025-01-14 10:20 | Outpatient (AMB) | payer OTHER, SELFPAY ==
--- NOTE | 2025-01-14 10:49 | AM.OFFWIN_ITS ---
Intake Vital Signs 01/14/25 10:50 Height 5 ft 2 in Weight 126 lb BMI 23.0 BP 106/56 L Blood Pressure Location Lt brachial Position Sitting Pulse 81 Pulse Source Pulse Oximeter Temp 98.1 F Temp Source Oral Pulse Oximetry (%) 98 Oxygen Delivery Method Room Air Intake Visit Reasons: EP-neck pain Intake Note: pt presents with right neck pain flaring for about a week Patient Tobacco Use Status: Never used Tobacco Allergies lovastatin Adverse Reaction (Verified 11/26/24 01:03) Rash benzonatate Allergy (Intermediate, Uncoded 01/14/25 10:53) Rash Penicillin Allergy (Unknown, Uncoded 06/23/24 14:45) rash Do you need a note to return to daycare/school/sports/work: No HPI HPI Comments History of Present Illness0 Details History of Present Illness - The patient is a 74-year-old female pr esenting with neck muscle spasm and stiffness. - The patient reports a history of neck spasms that have occurred intermittently in the past without significant discomfort. - The current episode began yesterday mo rning, with increased stiffness noted upon waking today. - The patient applied topical cream and a patch, which provided minimal relief. - There is no history of trauma or accid ents associated with the onset of symptoms. - The patient denies any numbness, tingl ing, or pain radiating to the shoulders or arms. - The patient has attempted changing pil lows to alleviate symptoms, without success. - A friend noted the muscle spasm and at tempted massage, which did not resolve the issue. - She denies trauma or fall. Physical Exam General: Cooperative, healthy appearing, comfortable, no acute distress and well developed Orientation: Patient oriented x3 Limitations: No light mitations Neck: FROM of the neck. Flexion and extension intact. No midline cervical spinous tenderness noted. TTP of the right cervical paraspinous muscles and SCM. Respiratory: Normal respiratory effort and able to speak in complete sentences. Clear to auscultation bilaterally Cardiovascular: Regular rate and rhythm. Normal S1 and S2 Skin: No rashes or lesions noted Neuro: Patient oriented x3. Sensation is intact. Extremities: Normal to inspection. FROM of the shoulders bilaterally. Strength is 5/5 on the UE. Hand dude wrangler is strong and intact bilaterally. Patient was informed and verbally consented to the use of an ambient scribe for clinic note documentation during this visit [facility] Medical History High cholesterol Asthma Diabetes HTN (hypertension) Social History Alcohol intake: current Alcohol intake frequency: a few times a week Alcohol type: beer Patient Tobacco Use Status: Never used Tobacco Review of Systems Const All systems reviewed & are unremarkable except as noted in HPI and below Physical Exam Vital Signs: Last Vital Signs Temp 98.1 F 01/14/25 10:50 Pulse 81 01/14/25 10:50 BP 106/56 L 01/14/25 10:50 Pulse Ox 98 01/14/25 10:50 Oxygen Delivery Method Room Air 01/14/25 10:50 BMI result Body Mass Index 23.0 Assessment & Plan Assessment & Plan (1) Neck pain: Code(s): M54.2 - Cervicalgia Plan Most likely spasm vs torticollis vs arthritis plan - Recommend use of a heating pad to alleviate muscle stiffness. - Prescribe a muscle relaxant and pain medication for symptom relief. - heat to the area - activities as tolerated - follow up with PCP if no better, may need an x-ray Medications: New cyclobenzaprine 5 mg PO Q8H PRN 20 tabs 0RF Muscle Spasm naproxen 500 mg PO Q12H PRN 20 tabs 0RF pain 7 days Coding Level of Care Code Est Pt Level 3 (25489) Diagnoses Neck pain M54.2
[2025-01-14 10:50] VITALS: BP 106/56; PULSE 81; TEMP 36.7; O2SAT 98; BMI 23.0
--- OUTSIDE RECORDS SUMMARY | 2025-01-14 12:02 | XMS_ITS | Patient Health Record ---
Author Organization [facility] Address [address] [place] [id number] Care Team Providers Care Curtain Mender Name Role Phone Florian Andrade Unavailable [phone] Reason For Referral No Information Plan Of Treatment No Information
--- OUTSIDE RECORDS SUMMARY | 2025-01-14 12:03 | XMS_ITS | Clinical Summary ---
Author Organization [facility] Address [address] [place] [address] Phone Care Team Providers Care Purler Name Role Phone Guerita Perez MD Primary Care Prov ider Allergies Active Allergy Reactions Criticality Noted Date Comments Benzonatate Hives,Rash 06/09/2024 Lovastatin Rash 04/18/2023 Oxycodone High 04/27/2023 Other Reaction(s): LIPS SWELLED Penicillin G Hives 11/12/2012 Other Reaction(s): Hives/Urticaria Pravastatin Headache 04/27/2023 Medications blood glucose control high,low solution Use to calibrate each new bottle of test strips 1 Active blood-glucose meter misc Use to test blood sugar once daily. 2 Active cetirizine (ZyrTEC) 10 mg tablet 1 tablet (10 mg total). 3 Active cholecalciferol (VITAMIN D-3) 25 mcg (1,000 unit) capsule Take 1 capsule (1,000 Units total) by mouth 1 (one) time each day. Active FREESTYLE LANCETS MISC Test fasting blood sugar 1 time daily 3 Active blood sugar diagnostic (FreeStyle Lite Strips) test strip USE DIRECTED TO TEST BLOOD SUGAR EVERY DAY 4 Active betamethasone dipropionate (DIPROSONE) 0.05 % cream APPLY TO THE AFFECTED AREA(S) ON RIGHT THIGH TWICE DAILY FOR 2 WEEKS, STOP FOR 1 WEEK. REPEAT NEEDED FOR FLARE. 4 Active albuterol 2.5 mg /3 mL (0.083 %) nebulizer solutionIndicati ons:Moderate persistent asthma without complication Take 3 mL (2.5 mg total) by nebulization every 4 (four) hours if needed for shortness of breath or wheezing. 300 mL 1 5 Active empagliflozin (Jardiance) 10 mg tablet Take 1 tablet (10 mg total) by mouth 1 (one) time each day. 90 tablet 3 5 026 Active albuterol HFA (PROAIR HFA ; PROVENTIL HFA ; VENTOLIN HFA) 90 mcg/actuation inhaler Inhale 2 puffs by mouth 4 (four) times a day. 6.7 g 5 Active alendronate (FOSAMAX) 70 mg tablet take 1 tablet by mouth once a week with 6 to 8 oz of water 30 min before first food of day. do not lie down for 30 minutes 12 tablet 1 5 Active zafirlukast (ACCOLATE) 20 mg tabletIndication s:Moderate persistent asthma without complication Take 1 tablet (20 mg total) by mouth 2 (two) times a day. 180 tablet 1 5 Active Advair HFA 230-21 mcg/actuation inhalerIndicatio ns:Moderate persistent asthma without complication Inhale 2 puffs by mouth 2 (two) times a day. Rinse mouth with water after use to reduce aftertaste and incidence of candidiasis. Do not swallow. 1 each 5 5 025 Active ezetimibe (ZETIA) 10 mg tablet TAKE 1 TABLET BY MOUTH EVERY DAY 90 tablet 1 5 Active hydroCHLOROthiaz audi (MICROZIDE) 12.5 mg capsuleIndicatio ns:HTN (hypertension), benign Take 1 capsule (12.5 mg total) by mouth 1 (one) time each day in the morning. 90 each 3 5 026 Active lisinopriL (PRINIVIL,ZESTRI L) 10 mg tabletIndication s:HTN (hypertension), benign Take 1 tablet (10 mg total) by mouth 1 (one) time each day. 90 each 3 5 026 Active metFORMIN XR (GLUCOPHAGE-XR) 500 mg 24 hr tabletIndication s:Controlled type 2 diabetes mellitus without complication, without long-term current use of insulin ([facility] V24, CMS/[facility] V28) Take 1 tablet (500 mg total) by mouth 2 (two) times a day. Do not crush, chew, or split. 180 each 3 5 026 Active cyanocobalamin (VITAMIN B-12) 1,000 mcg tablet Take 1 tablet (1,000 mcg total) by mouth 1 (one) time each day. 90 each 5 026 Active Active Problems Problem Noted Date Diagnosed Date [...] should be classified as having osteoporosis. The [facility] Department of Internal Medicine recommends using [...] Mycolog and yeast culture sent. Will follow [facility] guidelines. Uterine leiomyoma 07/11/2022 Overview [...] colon without hemorrhage 03/27 Overview (07/04/2023): CN 2007. HTN (hypertension), benign 11/12/2012 Assessment & Plan [...] Future Diabetes mellitus type 2, co ntrolled ([facility] V24, [facility] V28) 11/12/2012 Assessment & Plan (11/18/2024 9:28 [...] Care Team Description 11/19/2024 Telephone Adult Medicine [address], [place] [phone] Guerita Hough MD 11/18/2024 8:45 AM EDT Office Visit Adult Medicine [facility] [address] [place], [place] [phone] Guerita Hough MD Controlled type 2 diabetes mellitus without complication, without long-term current use of insulin ([facility] V24, [facility] V28) (Primary Dx); HTN (hypertension), benign; Hyperlipidemia with target LDL less than 100; Fatigue, unspecified type; Palpitations 11/07/2024 9:45 AM EDT Office Visit Pulmon[address] [place] [address] Nettie Garcia NP Seasonal allergic rhinitis, unspecified trigger (Primary Dx); Moderate persistent asthma without complication from Last 3 Months Immunizations Name Administration [...] History Date Comments Hypertension Asthma Diabetes mellitus ([facility] V24, [facility] V28) Arthritis Chronic bronchitis ([facility] V24, [facility] V28) Social History Tobacco Use Types Packs/Day [...] 03/26/2024 11 :22 AM EST Obstetrics History * This document contains information received from the source organization and may not represent a complete record from that organization. Para Term AB IAB SAB Ectopic Multiple Livin g Live Births 4 3 3 0 0 0 3 3 Date Outcome GA Total Labor Labor/2nd/3rd Weight Sex Type Anes PTL Aline A1 A5 Name Clin Term Vag-S pont Living Term Vag-S pont Living Term Vag-S pont Living Last Filed Vital Signs Vital Sign Reading [...] 03/20/2025 1:30 PM EST Appointment Radiology Department [address] [phone] 05/06/2025 9:45 AM EST Office Visit Pul[address] [phone] Nettie Garcia NP [address] [place] [address] 05/22/2025 9:00 AM EST Office Visit Adult Medicine [address] [phone] Guerita Perez MD [address] [place], [place] Health Maintenance Due Date Last Done Comments Zoster Vaccines (1 of 2) 02/16/2000 RSV Immunization Adult Patients (1 - Risk 60-74 years 1-dose series) 2010 COVID-19 Vaccine ( season) 2024 07/06/2021, 06/09/2020, 05/19/2020 Diabetes: Annual Retina Eye Exam 04/12/2024 04/12/2023 Depression Screening 05/14/2024 03/18/2024 Osteoporosis Screening (Bone Density Screening) 06/22/2024 06/22/2023, 10/27/2021 Medicare Annual Wellness Visit 11/12/2024 11/13/2023 Diabetes: Annual Foot Exam 03/18/2025 03/18/2024, Falls [...] 07/11/2024, 02/27/2024, 11/09/2023 Breast Cancer Screening 02/26/2026 02/27/20 24, 02/27/2024, 02/23/2023, Additional history exists Cholesterol Screening (Lipid Panel) 07/11/2029 07/11/2024, 12/26/2023, 04/10/2023 Colorectal Cancer Screening: Colonoscopy 10/24/2033 10/25/2023 DTaP,Tdap,and Td Vaccines Discontinued 11/12/2012 Pneumococcal Vaccine: 50+ Years Completed 07/26/2018, 06/25/2015 Influenza Vaccine Discontinued 04/03/2023, , 06/11/2021, Additional history exists Hepatitis C Screening Completed 12/24/2024, 013 HIB Vaccines Aged Out No longer eligi [...] Procedure Name Priority Date/Time Associated Diagnosis Comments HEPATITIS C ANTIBODY Routine 12/24/2024 11:45 AM EDT Other lichen planus VITAMIN B12 Routine 11/18/2024 9:45 AM EDT Fatigue, unspecified type VITAMIN D 25 HYDROXY Routine 11/18/2024 9:45 AM EDT Fatigue, unspecified type ECG 12-LEAD TRACING ONLY Routine 11/18/2024 9:27 AM EDT Palpitations HEMOGLOBIN A1C Routine 09/25/2024 10:10 AM EDT Controlled type 2 diabetes mellitus without complication, without long-term current use of insulin ([facility] V24, [facility] V28) MICROALBUMIN CREATININE URINE RATIO Routine 07/11/2024 [...] long-term current use of insulin (CMS/HCC V24, [facility] V28) HTN (hypertension), benign Hyperlipidemia associated with type 2 diabetes mellitus (CMS/HCC V24, CMS/HCC V28) LIPID PANEL WITH REFLEX TO DIRECT LDL Routine 07/11/2024 8:30 AM EST Controlled type 2 diabetes mellitus without complication, without long-term current use of insulin (CMS/HCC V24, [facility] V28) HTN (hypertension), benign Hyperlipidemia associated with type 2 diabetes mellitus (CMS/HCC V24, [facility] V28) SCREENING MAMMOGRAPHY BI 2-VIEW BREAST INC CAD Routine 02/27/2024 2:50 PM EDT Encounter for screening mammogram for malignant neoplasm of breast DXA BONE DENSITY STUDY 1+ SITS AXIAL SKEL Routine 06/22/2023 9:39 AM EST Asymptomatic menopausal state from Last 3 Months or Most Recently Relevant to Health Maintenance Results * Hepatitis C antibody (12/24/2024 11:45 AM EDT) Hepatitis C Antibody Negative Negative LAB CHEMISTRY METHOD 12/24/2024 3:28 PM EDT [facility] Blood Venous blood specimen / Unknown Venipuncture / Unknown 12/24/2024 11:45 AM EDT 12/24/2024 11:46 AM EDT us Davey Yin MD LAB BLOOD ORDERABLES Final Result [facility] [address] [place] [address], * Vitamin D 25 hydroxy (11/18/2024 9:45 AM EDT) Pathologist [facility] Vit D, 25-Hydroxy 45.3 30.0 - 80.0 ng/mL LAB CHEMISTRY METHOD 11/18/2024 2:49 PM EDT [facility] Blood Venous blood specimen / Unknown Venipuncture / Unknown 11/18/2024 9:45 AM EDT 11/18/2024 9:45 AM EDT Guerita Perez MD LAB BLOOD ORDERABL ES Final Result Performing Organization Address City/[facility]/ZIP Co de Phone Number [facility] [address] [place] [address], [place] [phone] * (ABNORMAL) Vitamin B12 (11/18/2024 9:45 AM EDT) [facility] Vitamin B-12 176(L) 250 - 900 pcg/mL LAB CHEMISTRY METHOD 11/18/2024 2:03 PM EDT [facility] Blood Venous blood specimen / Unknown Venipuncture / Unknown 11/18/2024 9:45 AM EDT 11/18/2024 9:45 AM EDT Guerita Perez MD LAB BLOOD ORDERABL ES Final Result Performing Organization Address City/[facility]/ZIP Co de Phone Number [facility] [address] [place] [address], [place] [phone] * ECG 12 lead Tracing Only (11/18/2024 9:27 AM EDT) us Guerita Perez MD ECG ORDERABLES Fi nal Result * (ABNORMAL) Hemoglobin A1c (09/25/2024 10:10 AM EDT) [facility] Hemoglobin A1C 7.1(H) <6.5 % LAB CHEMISTRY METHOD 09/25/2024 5:17 PM EDT [facility] Mean Bld Glu Estim. 157 mg/dL LAB CHEMISTRY METHOD 09/25/2024 5:17 PM EDT [facility] Blood Venous blood specimen / Unknown Venipuncture / Unknown 09/25/2024 10:10 AM EDT 09/25/2024 10:10 AM EDT us Guerita Perez MD LAB BLOOD ORDERABL ES Final Result [facility] [address] [place] [address], [place] [phone] * (ABNORMAL) Lipid panel with reflex to direct LDL (07/11/2024 8:30 AM EST) Cholesterol 192 0 - 200 mg/dL LAB CHEMISTRY METHOD 07/11/2024 12:06 PM [facility] Triglycerides 204(H) 0 - 150 mg/dL LAB CHEMISTRY METHOD 07/11/2024 12:06 PM [facility] HDL 72 >=40 mg/dL LAB CHEMISTRY METHOD 07/11/2024 12:06 PM [facility] LDL Calculated 79 0 - 100 mg/dL LAB CHEMISTRY METHOD 07/11/2024 12:06 PM [facility] VLDL Cholesterol Vasiliy 40.8 mg/dL LAB CHEMISTRY METHOD 07/11/2024 12:06 PM [facility] Non HDL Chol. (LDL+VLDL) 120 <145 mg/dL LAB CHEMISTRY METHOD 07/11/2024 12:06 PM [facility] Chol/HDL Ratio 2.7 0.0 - 4.4 LAB CHEMISTRY METHOD 07/11/2024 12:06 PM [facility] Blood Venous blood specimen / Unknown Venipuncture / Unknown 07/11/2024 8:30 AM EST 07/11/2024 8:30 AM EST us Guerita Perez MD LAB BLOOD ORDERABL ES Final Result [facility] [address] [place] [address], [place] [phone] * Microalbumin creatinine urine ratio (07/11/2024 8:30 AM EST) Creatinine, Urine 66.0 mg/dL LAB CHEMISTRY METHOD 07/11/2024 12:09 PM [facility] Microalb, Ur 13.7 0.0 - 29.0 mg/L LAB CHEMISTRY METHOD 07/11/2024 12:09 PM [facility] Microalb/Creat Ratio 21 <30 mg/g creat LAB CHEMISTRY METHOD 07/11/2024 12:09 PM [facility] Urine Urine specimen from urethra / Unknown Non-blood Collection / Unknown 07/11/2024 8:30 AM EST 07/11/2024 8:30 AM EST Guerita Perez MD LAB URINE ORDERABL ES Final Result Performing Organization Address City/[facility]/ZIP Co de Phone Number [facility] [address] [place] [address], [place] [phone] * (ABNORMAL) Comprehensive metabolic panel (07/11/2024 8:30 AM EST) Sodium 137 133 - 145 mmol/L LAB CHEMISTRY METHOD 07/11/2024 12:06 PM [facility] Potassium 3.6 3.5 - 5.5 mmol/L LAB CHEMISTRY METHOD 07/11/2024 12:06 PM [facility] Chloride 102 96 - 110 mmol/L LAB CHEMISTRY METHOD 07/11/2024 12:06 PM [facility] CO2 30 21 - 32 mmol/L LAB CHEMISTRY METHOD 07/11/2024 12:06 PM [facility] Anion Gap 5 3 - 11 LAB CHEMISTRY METHOD 07/11/2024 12:06 PM [facility] Glucose 122(H) 70 - 100 mg/dL LAB CHEMISTRY METHOD 07/11/2024 12:06 PM [facility] BUN 18 5 - 25 mg/dL LAB CHEMISTRY METHOD 07/11/2024 12:06 PM [facility] Creatinine 0.63 0.50 - 1.10 mg/dL LAB CHEMISTRY METHOD 07/11/2024 12:06 PM [facility] eGFR 93 >=60 mL/min/1. 73m2 LAB CHEMISTRY METHOD 07/11/2024 12:06 PM [facility] Comment:Calculation based on the Chronic Kidney Disease Epidemiology Collaboration (CKD-EPI) equation refit without adjustment for race. BUN/Creatinine Ratio 28.6 LAB CHEMISTRY METHOD 07/11/2024 12:06 PM [facility] Calcium 9.7 8.5 - 10.5 mg/dL LAB CHEMISTRY METHOD 07/11/2024 12:06 PM [facility] AST (SGOT) 7(L) 10 - 42 unit/L LAB CHEMISTRY METHOD 07/11/2024 12:06 PM [facility] ALT (SGPT) 17 10 - 60 unit/L LAB CHEMISTRY METHOD 07/11/2024 12:06 PM [facility] Alkaline Phosphatase 61 42 - 121 unit/L LAB CHEMISTRY METHOD 07/11/2024 12:06 PM [facility] Total Protein 7.2 6.0 - 8.0 g/dL LAB CHEMISTRY METHOD 07/11/2024 12:06 PM [facility] Albumin 4.1 3.2 - 5.0 g/dL LAB CHEMISTRY METHOD 07/11/2024 12:06 PM [facility] Total Bilirubin 0.5 0.0 - 1.4 mg/dL LAB CHEMISTRY METHOD 07/11/2024 12:06 PM [facility] Blood Venous blood specimen / Unknown Venipuncture / Unknown 07/11/2024 8:30 AM EST 07/11/2024 8:30 AM EST Guerita Perez MD LAB BLOOD ORDERABL ES Final Result [facility] [address] [place] [address], * SCREENING MAMMOGRAPHY BI 2-VIEW BREAST INC [...] Breast cancer risk category Low (<15%) Location: [facility], [address] [place] [address], [address], [phone] Procedure Note Juan Carlos Beck MD - [...] Breast cancer risk category Low (<15%) Location: [facility], [address] [place] [address], [address], [phone] Guerita Perez MD IMG XR PROCEDURES Final [...] should be classified as having osteoporosis. The [facility] Department of Internal Medicine recommends using [...] Sexton should beclassified as having osteoporosis. The [facility] Department of Internal Medicine recommendsusing National [...] or over-estimation of fracture risk by FRAX. us Abril GAGNON IMG DXA PROCEDURES Final Result from Last 3 Months or Most Recently Relevant to Health Maintenance Insurance [employer] MEDIC[employer] Member Subscriber Plan / Payer (Ef fective 2023-Present) Name:Bing Sexton Relation to Subscriber:Self Name:Bing Sexton Payer ID:[id number] Group ID:[id number] Type:Not on file Address: [place] [address] [address] [phone] Advance Directives * Full Code - Default [...] currently active code status orders. Care Teams Purler Relationship Specialty Start Date End Date Guerita Perez MD [address] [place] [phone] PCP - General Internal Medicine 03/19/24
== END 2025-01-14 11:35 | disposition home or self-care (01) ==
PROVIDERS: Visit Provider Physician Assistant Medical
DX: M54.2 Cervicalgia (principal)

== ENCOUNTER → 2025-01-14 10:20 | Outpatient (BNVA) | payer OTHER, SELFPAY | DX: M54.2 Cervicalgia (principal) | CPT/HCPCS: 99212 ==